=== PATIENT | male | born 1945 | race American Indian/Alaskan Native ===

== ENCOUNTER 2019-02-07 20:17 | Inpatient (IN) | payer MEDICARE ==
[~2019-02-07] VITALS: Ht 172.7 cm; Wt 103.4 kg
[2019-02-07] MEDS ORDERED: ALBU2.5V5 (20:37)
[2019-02-07 20:38] LABS: BASOPHILS ABSOLUTE AUTO 0.01 K/mm3 (0.00-0.23); BASOPHILS PERCENT AUTO 0 % (0-2); EOSINOPHILS PERCENT AUTO 0 % (0-6); Hemoglobin 17.3 g/dL (13.5-17.5); IMMATURE GRAN ABSOLUTE AUTO 0.08 K/mm3 (0.00-0.10); IMMATURE GRAN PERCENT AUTO 1 % (0-1); LYMPHOCYTES ABSOLUTE AUTO 0.85 K/mm3 (0.84-5.20); LYMPHOCYTES PERCENT AUTO 9 % (21-46); MONOCYTES ABSOLUTE AUTO 0.74 K/mm3 (0.16-1.47); MONOCYTES PERCENT AUTO 8 % (4-13); Mean Corpuscular HGB 32.8 pg (26.0-34.0); Mean Corpuscular HGB Conc 31.2 g/dL (31.5-36.5); Mean Corpuscular Volume 105 fL (80-100); Mean Platelet Volume 11.1 fL (9.1-12.4); NEUTROPHILS ABSOLUTE AUTO 7.54 K/mm3 (1.96-9.15); NEUTROPHILS PERCENT AUTO 82 % (41-73); NRBC ABSOLUTE 0.08 K/mm3 (0.00-0.02); NRBC Auto 0.9 /100 WBC (0.0-0.2); Platelet Count 165 K/mm3 (150-400); RDW Coefficient Variation 13.5 % (11.7-14.2); RDW Standard Deviation 53.1 fL (35.1-46.3); Red Blood Cell Count 5.27 M/mm3 (4.30-5.90); White Blood Cell Count 9.22 K/mm3 (4.00-11.30)
[2019-02-07 20:41] LABS: PCO2 Arterial 91.9 mmHg (35-45); PO2 Arterial 142 mmHg (80-100); pH Blood Arterial 7.16 (7.35-7.45)
[2019-02-07 20:45] LABS: Hematocrit 55.5 % (37.0-53.0)
[2019-02-07 20:53] LABS: Alanine Aminotransfer (ALT/SGP 77 U/L (12-78); Albumin, Blood 3.5 g/dL (3.4-5.0); Albumin/Globulin Ratio 0.8 (0.8-1.8); Alk Phos 60 U/L (50-136); Anion Gap 9 mmol/L (6-16); Aspartate Aminotrans (AST/SGOT 84 U/L (12-37); Bilirubin, Total 1.2 mg/dL (0.1-1.0); Blood Urea Nitrogen 81 mg/dL (8-24); Bun/Creatinine Ratio 64.8 (12.0-20.0); CO2, Blood 30 mmol/L (21-32); Calcium, Blood 8.5 mg/dL (8.5-10.1); Chloride, Blood 103 mmol/L (98-108); Creatinine, Blood 1.25 mg/dL (0.60-1.20); Globulin, Blood 4.6 g/dL (2.2-4.0); Glomerular Filtration Rate >60 (60-); Glucose, Blood 127 mg/dL (70-99); Potassium, Blood 5.6 mmol/L (3.5-5.5); Sodium, Blood 142 mmol/L (136-145); Total Protein, Blood 8.1 g/dL (6.4-8.2)
[2019-02-07] MEDS ORDERED: ALBU90OI INH (21:30)
[2019-02-07] MEDS ORDERED: FLUT1DIS5 INH (21:31)
[2019-02-07 22:37] LABS: PCO2 Arterial 78.6 mmHg (35-45); PO2 Arterial 69.1 mmHg (80-100); pH Blood Arterial 7.22 (7.35-7.45)
[2019-02-07 23:36] LABS: Anion Gap 3 mmol/L (6-16); Blood Urea Nitrogen 85 mg/dL (8-24); Bun/Creatinine Ratio 79.4 (12.0-20.0); CO2, Blood 31 mmol/L (21-32); Calcium, Blood 8.3 mg/dL (8.5-10.1); Chloride, Blood 106 mmol/L (98-108); Creatinine, Blood 1.07 mg/dL (0.60-1.20); Glomerular Filtration Rate >60 (60-); Glucose, Blood 116 mg/dL (70-99); Potassium, Blood 5.5 mmol/L (3.5-5.5); Sodium, Blood 140 mmol/L (136-145)
[2019-02-07 23:45] LABS: Creatine Kinase MB 5.3 ng/mL (0.0-3.6); Creatine Kinase MB Index 2.2 (0.0-4.0)
--- NOTE | 2019-02-07 23:45 | NUR ---
ADMIT PT ARRIVES VIA STRETCHER WITH RT ON BIPAP 14/8 FIO2 35% AND BUR 18. PT MUMBLES WORDS AND IS ATTEMPTING TO PULL OFF BIPAP. PT DOES NOD YES WHEN ASKED IF HE LIKES TO BE CALLED [facility]LE[facility] BUT WILL NOT ANSWER ANY FURTHER QUESTIONS AND IS ATTEMPTING TO GET OOB AND PULLING OFF BIPAP, O2 SATS DROP FROM 95% TO 88% QUICKLY. PLAN TO CALL DR RAI FOR ORDERS AND INITIATE ADMIT ORDERS.
--- NOTE | 2019-02-08 00:20 | NUR ---
DR RAI CALLED PT ONLY NODS HEAD TO SIMPLE QUESTIONS AND YELLS OUT OBSCENITIES, ATTEMPTING TO PULL BIPAP OFF AND GET OOB. CALL TO DR RAI BILMELIDA SOFT WRIST RESTRAINT ORDER AND PRECEDEX GTT OBTAINED.
[2019-02-08 00:51] LABS: U Amphetamine Screen Not Detected; U Barbituate Screen Not Detected; U Benzodiazapine Screen Not Detected; U Cannabinoids Screen Not Detected; U Cocaine Screen Not Detected; U Methadone Screen Not Detected; U Methamphetamine Screen Not Detected; U Opiates Screen Not Detected; U Phencyclidine Screen Not Detected
[2019-02-08 00:52] LABS: U Buprenorphine Screen Not Detected; U Oxycodone Screen Not Detected; U Propoxyphene Screen Not Detected
--- NOTE | 2019-02-08 03:24 | NUR ---
TRIAL OFF BIPAP PT IS RESTLESS, BIPAP OFF AND ORAL CARE COMPLETED. O2 SATS DROPPED TO 88% WHILE OFF BIPAP. WHEN ASKED ORIENTATION QUESTIONS, PT RESPONDS TO NAME BUT WILL NOT ANSWER QUESTIONS RELATED TO LOCATION OR DATE. BIPAP RESUMED AT 18/8 FIO2 35%.
--- NOTE | 2019-02-08 03:53 | NUR ---
UPDATE PT REMAINS RESTLESS DESPITE UPWARD TITRATION OF PRECEDEX. PT IS PULLING ON RESTRAINTS AND HAS BEEN ABLE TO MOVE HIS UPPER BODY OVER TO THE SIDE OF THE BED WHERE HE CAN REACH BIPAP AND PULL IT OFF IN ADDITION TO PULLING ON HIS CATHETER TO WHERE THERE IS NOW BLOOD AT THE MEATUS. BIPAP OFF AND O2 AT 2L/NC ON. PT NOW ABLE TO TELL THIS RN THAT HE IS IN THE HOSPITAL, DOES NOT KNOW DATE BUT KNOWS SIRI IS PRESIDENT. AFTER 15 MINUTES OFF BIPAP, PT YELLS "HELP" AND REPORTS INCREASED WOB/SOB. BIPAP RESUMED.
[2019-02-08 04:42] LABS: Source, Urine Catheter
[2019-02-08 04:49] LABS: Appearance, Urine Cloudy (Clear); Bilirubin, Urine Neg (Neg); Blood, Urine 5+ (Neg); Color, Urine Amber (P-Yellow); Glucose Qualitative, Urine Neg (Neg); Ketones, Urine Neg (Neg); Leukocyte Esterase, Urine 3+ (Neg); Nitrite, Urine Neg (Neg); Protein, Urine 2+ (Neg); Urobilinogen, Urine 2+ (Normal)
[2019-02-08 05:05] LABS: Bacteria Many /hpf; Hyaline Casts 0-2 /lpf (0-2); Squamous Epithelial Cells Few /hpf (Few); White Blood Cells, Urine 50-100 /hpf (0-5)
[2019-02-08 05:06] LABS: WBC Cast 0-2 /lpf (0)
[2019-02-08 05:26] LABS: Hematocrit 50.4 % (37.0-53.0); Hemoglobin 15.3 g/dL (13.5-17.5); Mean Corpuscular HGB 31.9 pg (26.0-34.0); Mean Corpuscular HGB Conc 30.4 g/dL (31.5-36.5); Mean Corpuscular Volume 105 fL (80-100); Mean Platelet Volume 10.7 fL (9.1-12.4); NRBC ABSOLUTE 0.06 K/mm3 (0.00-0.02); NRBC Auto 0.9 /100 WBC (0.0-0.2); Platelet Count 133 K/mm3 (150-400); RDW Coefficient Variation 13.6 % (11.7-14.2); RDW Standard Deviation 53.2 fL (35.1-46.3); White Blood Cell Count 6.52 K/mm3 (4.00-11.30)
[2019-02-08 05:50] LABS: Magnesium, Blood 3.4 mg/dL (1.6-2.4)
[2019-02-08 06:04] LABS: Anion Gap 7 mmol/L (6-16); Blood Urea Nitrogen 81 mg/dL (8-24); Bun/Creatinine Ratio 74.3 (12.0-20.0); CO2, Blood 27 mmol/L (21-32); Chloride, Blood 108 mmol/L (98-108); Creatinine, Blood 1.09 mg/dL (0.60-1.20); Glomerular Filtration Rate >60 (60-); Glucose, Blood 148 mg/dL (70-99); Sodium, Blood 142 mmol/L (136-145)
[2019-02-08 06:05] LABS: Potassium, Blood 6.2 mmol/L (3.5-5.5)
--- NOTE | 2019-02-08 06:16 | NUR ---
CALL TO DR CECELIA LYNNE UPDATED ON CRITICAL K OF 6.2. ONCE LABS REVIEWED, DR PLACED ORDER FOR 10 INSULIN IV AND 25GM D50.
--- NOTE | 2019-02-08 06:37 | NUR ---
SHIFT SUMMARY SEE PREVIOUS NOTES FOR SHIFT. PT REMAINS ON BIPAP 18/8 FIO2 35% AND PRECEDEX CURRENTLY AT 0.2 MCG/HR. AFTER UPDATING DR RAI OF AM LABS, ORDERS ENTERED FOR CALCIUM GLUCONATE AND D50 FOLLOWED BY 10 UNITS OF IV INSULIN AT 0730. CALCIUM GLUCONATE INFUSING AND D50 HAS BEEN ADMINISTERED. BP LOW BUT WITH ADEQUATE MAP AND UOP >500, ECG SHOWS SR/SB WITH DROPS DOWN TO 48/MIN BUT IS NOT SUSTAINED AND PRECEDEX HAS BEEN CONTINUOUSLY TITRATED DOWNWARD. O2 SATS MID 90'S.
[2019-02-08 07:56] LABS: Base Excess Venous 1.6 mmol/L; Bicarbonate Venous 23.8 mmol/L (24.0-30.0); PO2 Venous 80.7 mmHg (38-42); pH Blood Venous 7.23 (7.34-7.37)
[2019-02-08 09:17] LABS: Adenovirus Not Detected (NOT DETECT); Bordetella pertussis Not Detected (NOT DETECT); Chlamydophila pneumoniae Not Detected (NOT DETECT); Coronavirus 229E Not Detected (NOT DETECT); Coronavirus HKU1 Not Detected (NOT DETECT); Coronavirus NL63 Not Detected (NOT DETECT); Coronavirus OC43 Not Detected (NOT DETECT); Human Metapneumovirus Not Detected (NOT DETECT); Human Rhinovirus/Enterovirus Not Detected (NOT DETECT); Influenza A Detected (NOT DETECT); Influenza A/2009-H1 Not Detected (NOT DETECT); Influenza A/H1 Not Detected (NOT DETECT); Influenza A/H3 Detected (NOT DETECT); Influenza B Not Detected (NOT DETECT); Mycoplasma pneumoniae Not Detected (NOT DETECT); Parainfluenza Virus 1 Not Detected (NOT DETECT); Parainfluenza Virus 2 Not Detected (NOT DETECT); Parainfluenza Virus 3 Not Detected (NOT DETECT); Parainfluenza Virus 4 Not Detected (NOT DETECT); Respiratory Syncytial Virus Not Detected (NOT DETECT)
--- NOTE | 2019-02-08 10:35 | NUR ---
PT HAS BEEN COOPERATIVE, NOT PULLING ON HIS BIPAP OR TRYING TO GET OUT OF BED WHILE HE IS AWAKE SO RESTRAINTS DISCONTINUED. EXPLAINED TO HIM AND HIS DAUGHTER BEHAVIORS AND REASONS THAT WOULD NECESSITATE PT GOING BACK IN RESTRAINTS. PT CAME BACK FLU + SO PLACED ON ISOLATION PRECAUTIONS. DR. PERDUE INFORMED OF THIS WELL THAT PT'S PAULINE IS PRESENT AND HE CAME AND SPOKE WITH HER IN THE ROOM. PT IS CURRENTLY OFF OF BIPAP ON 2L/NC AND APPEARS TO BE BREATHING WITH LITTLE EFFORT. SPOKE WITH DR. PERDUE AND RECEIVED OK TO FEED PT IF HE CONTINUES TO BREATHE OK OFF OF BIPAP.
--- NOTE | 2019-02-08 12:10 | NUR ---
REASSESSMENT: PT HAS BEEN MORE AWAKE THE LATTER HALF OF THE MORNING, WATCHING TV AND INTERACTING WITH HIS FAMILY WHEN THEY WERE IN THE ROOM. LUNGS ARE STILL DIM. HE HAS BEEN OFF OF THE BIPAP FOR ABOUT AN HOUR AND A HALF, JUST ON 2L/NC AND IS STILL BREATHING EASILY. PT IS A LITTLE RESTLESS AND ADMITS THAT HE DOESN'T LIKE BEING IN THE HOSPITAL, SUPPORT GIVEN. HE REFUSED ANY LUNCH. DENIES NAUSEA, JUST NO APPETITE. HE IS DRINKING WATER. HE GOT A BATH THIS MORNING. SKIN IS VERY DRY SO MOISTURIZER APPLIED LIBERALLY. CONTIUING TO MONITOR.
[2019-02-08 12:39] LABS: Albumin, Blood 3.2 g/dL (3.4-5.0); Anion Gap 7 mmol/L (6-16); Blood Urea Nitrogen 78 mg/dL (8-24); Bun/Creatinine Ratio 74.3 (12.0-20.0); CO2, Blood 26 mmol/L (21-32); Calcium, Blood 8.1 mg/dL (8.5-10.1); Chloride, Blood 110 mmol/L (98-108); Creatinine, Blood 1.05 mg/dL (0.60-1.20); Glomerular Filtration Rate >60 (60-); Glucose, Blood 129 mg/dL (70-99); Potassium, Blood 5.5 mmol/L (3.5-5.5); Sodium, Blood 143 mmol/L (136-145)
--- NOTE | 2019-02-08 15:27 | NUR ---
PT WAS WORE THE BIPAP MASK FOR ABOUT AN HOUR BEFORE TAKING IT OFF AND TELLING THIS RN THAT HE DOESN'T WANT TO WEAR IT ANYMORE. PT CONFIRMED THAT HE UNDERSTOOD NOT WEARING THE MASK COULD LEAD TO AND HE STILL DIDN'T WANT IT. PT WAS ABLE TO CORRECTLY STATE WHERE HE WAS AND WHO THE PRESIDENT IS. WHEN QUESTIONED PT FURTHER HE STATES THAT HE WOULDN'T WANT TO BE INTUBATED OR HAVE CPR. BROUGHT PT'S DAUGHTERS INTO THE ROOM AND DISCUSSED WITH THEM WHAT PT IS SAYING EMPHASIZING THAT I WAS BRINGING THEM IN SO THEY COULD HEAR WHAT HE HAS TO SAY AND EMPHASIZING THAT THIS IS THE PT'S DECISION SINCE HE IS COHERENT. PT'S CONVERSATION WITH HIS DAUGHTERS LARGELY CONSISTED OF THEM BEGGING HIM TO WEAR THE MASK AND AGREE TO CONTINUE BEING A FULL CODE. PT CLEARLY STATED TO THEM THAT IT IS NOT WHAT HE WANTS, BUT ULTIMATELY TOLD ME HE WOULD CONTINUE TO BE FULL CODE. HE ALSO SAID HE WOULD WEAR THE MASK BUT ASKED FOR MEDICATION TO HELP HIM RELAX AGAIN SO PRECEDEX GTT RESTARTED AND WILL PLACE BACK ON BIPAP. PALLIATIVE CONSULT PLACED TO HELP FACILITATE CONVERSATIONS ABOUT CODE STATUS AND GOALS OF CARE FOR TREATMENT.
--- NOTE | 2019-02-08 16:21 | NUR ---
SHIFT SUMMARY: PT HAS CONTINUED TO BE ALERT THROUGHOUT THE REST OF THE DAY. HE APPEARS TO BE SLIGHTLY LABORED IN HIS BREATHING BUT HE DENIES FEELING SHORT OF BREATH AND HIS PAULINE SAYS THAT HE ALWAYS LOOKS A LITTLE DYSPNEIC. LUNGS HAVE A FEW QUIET WHEEZES, BUT ARE OTHERWISE DIM. HE HAS CONTINUED TO BE SR, BP STABLE. DUNBAR STILL HAS A LITTLE BIT OF BLOOD IN IT MAKING THE URINE TEA COLORED NOW, NO CLOTS SEEN. PT IS TAKING PO FLUIDS BUT HAS NOT WANTED ANY SOLID FOODS SO FAR. FAMILY HAS SPENT MOST OF THE DAY AT THE BEDSIDE. LOTS OF DISCUSSION ABOUT CODE STATUS WITH THEM AND PALLIATIVE CONSULT HAS BEEN PLACED. PT WAS STILL NOT WANTING THE BIPAP EVEN WITH SOME PRECEDEX ON SO PRECEDEX OFF AGAIN AND WILL READDRESS BIPAP LATER WITH PT AND FAMILY IF HE STOPS MAINTAINING SPO2 ABOVE 88 OR IF BREATHING BECOMES MORE LABORED. CONTIUING TO MONITOR FOR NOW.
--- NOTE | 2019-02-08 19:38 | NUR ---
[place] of Care: Patient alert and oriented to self, place, time, reason for admission. Sitting upright in bed watching tv, calm and cooperative with staff. Denies pain, discomfort, SOB, or dyspnea. VSS, O2 88-92% on 4L/NC. Peripheral IV's x2 patent and intact, NS infusing at 75ml/hr. Keyes cath patent and intact, draining dark yellow, clear urine. Call light and fluids within reach. Will continue to monitor for pain, comfort, safety.
[2019-02-09 03:31] LABS: BASOPHILS ABSOLUTE AUTO 0.01 K/mm3 (0.00-0.23); BASOPHILS PERCENT AUTO 0 % (0-2); EOSINOPHILS PERCENT AUTO 0 % (0-6); Hematocrit 49.9 % (37.0-53.0); Hemoglobin 15.1 g/dL (13.5-17.5); IMMATURE GRAN ABSOLUTE AUTO 0.22 K/mm3 (0.00-0.10); IMMATURE GRAN PERCENT AUTO 2 % (0-1); LYMPHOCYTES PERCENT AUTO 7 % (21-46); MONOCYTES ABSOLUTE AUTO 0.48 K/mm3 (0.16-1.47); MONOCYTES PERCENT AUTO 4 % (4-13); Mean Corpuscular HGB 32.9 pg (26.0-34.0); Mean Corpuscular HGB Conc 30.3 g/dL (31.5-36.5); Mean Platelet Volume 11.1 fL (9.1-12.4); NEUTROPHILS ABSOLUTE AUTO 10.26 K/mm3 (1.96-9.15); NEUTROPHILS PERCENT AUTO 87 % (41-73); NRBC Auto 1.7 /100 WBC (0.0-0.2); Platelet Count 131 K/mm3 (150-400); RDW Coefficient Variation 13.6 % (11.7-14.2); RDW Standard Deviation 55.7 fL (35.1-46.3); Red Blood Cell Count 4.59 M/mm3 (4.30-5.90); White Blood Cell Count 11.77 K/mm3 (4.00-11.30)
[2019-02-09 03:34] LABS: Mean Corpuscular Volume 109 fL (80-100)
[2019-02-09 03:59] LABS: Albumin, Blood 3.1 g/dL (3.4-5.0); Anion Gap 4 mmol/L (6-16); Blood Urea Nitrogen 61 mg/dL (8-24); Bun/Creatinine Ratio 72.5 (12.0-20.0); CO2, Blood 31 mmol/L (21-32); Chloride, Blood 110 mmol/L (98-108); Creatinine, Blood 0.84 mg/dL (0.60-1.20); Glomerular Filtration Rate >60 (60-); Glucose, Blood 110 mg/dL (70-99); Phosphorus, Blood 3.7 mg/dL (2.5-4.9); Potassium, Blood 6.1 mmol/L (3.5-5.5); Sodium, Blood 145 mmol/L (136-145)
--- NOTE | 2019-02-09 07:28 | NUR ---
Shift Summary: Patient slept on/off throughout shift. Continues to deny pain, discomfort, SOB, or dyspnea. Placed on BiPAP mask early in shift r/t O2% in low 80's, also sleeping well at that time. Did not tolerate BiPAP mask for longer than 10min. Placed back on NC, O2-5-6L, effective to maintain O2% of 87-93% throughout remainder of shift. Peripheral IV's remain patent and intact, infusing NS at 75ml/hr without difficulty. Also tolerated PO water without difficulty. Keyes cath remains patent and intact, draining dark yellow, clear urine. Report given to day shift YUMI Jones.
[2019-02-09 09:22] LABS: Alanine Aminotransfer (ALT/SGP 145 U/L (12-78); Albumin, Blood 3.1 g/dL (3.4-5.0); Albumin/Globulin Ratio 0.9 (0.8-1.8); Alk Phos 46 U/L (50-136); Anion Gap 3 mmol/L (6-16); Aspartate Aminotrans (AST/SGOT 90 U/L (12-37); Bilirubin, Total 0.9 mg/dL (0.1-1.0); Blood Urea Nitrogen 55 mg/dL (8-24); CO2, Blood 31 mmol/L (21-32); Calcium, Blood 8.2 mg/dL (8.5-10.1); Chloride, Blood 111 mmol/L (98-108); Creatinine, Blood 0.79 mg/dL (0.60-1.20); Globulin, Blood 3.5 g/dL (2.2-4.0); Glomerular Filtration Rate >60 (60-); Glucose, Blood 115 mg/dL (70-99); Potassium, Blood 5.9 mmol/L (3.5-5.5); Sodium, Blood 145 mmol/L (136-145); Total Protein, Blood 6.6 g/dL (6.4-8.2)
--- NOTE | 2019-02-09 13:58 | NUR ---
PT AWAKE THIS AM AT 0730 BUT LETHARGIC, SLOW TO ANSWER QUESTIONS, RESP 20-30'S, SATS 88-92% ON 6L VIA NC. DR PERDUE IN TO SEE PT EARLY AROUND 0800. PT MORE ALERT WHEN SPEAKING W DR PERDUE. PT CONTINUED TO IMPROVE COGNITIVELY FAMILY CAME IN TO VISIT. PT ANSWERS MOST QUESTIONS W ONE WORD ANSWERS. DENIES C/O PAIN BUT APPEARS DYSPNEIC WITH EXERTION. PT GIVEN BED BATH AND TRANSFERED TO CHAIR USING LIFT AT NOON. PT TOLERATED WELL. ALBUMIN IV GIVEN PER DR CESAR ORDERS. NS AT 75CC/HR. PT LUNGS WITH EXP WHEEZES THAT IMPROVE AFTER TREATMENTS AND DIMINISHED T/O. AFEBRILE. NORVASC STARTED FOR HTN. PT NOW MED FLOOR STATUS W TELE.
--- NOTE | 2019-02-09 15:29 | NUR ---
SBA WITH WALKER AND GAIT BELT TO BEDSIDE COMMODE AND BACK TO CHAIR. PT ABLE TO STAND W/O ASSIST. PT/OT ORDERED. SATS DROPPED SLIGHTLY INTO HIGH EIGHTIES, PT RECOVERED WITHIN MIN OF RESTING. OVERALL PT TOLERATED ACTIVITY WELL. LARGE SOFT BM.
--- NOTE | 2019-02-09 17:57 | NUR ---
REPORT GIVEN TOMEDICAL FLOOR RN. PT TO MEDICAL FLOOR AT 1800
[2019-02-09 18:03] LABS: Albumin, Blood 3.6 g/dL (3.4-5.0); Anion Gap 1 mmol/L (6-16); Blood Urea Nitrogen 52 mg/dL (8-24); Bun/Creatinine Ratio 65.7 (12.0-20.0); CO2, Blood 35 mmol/L (21-32); Calcium, Blood 8.4 mg/dL (8.5-10.1); Chloride, Blood 107 mmol/L (98-108); Creatinine, Blood 0.79 mg/dL (0.60-1.20); Glomerular Filtration Rate >60 (60-); Glucose, Blood 131 mg/dL (70-99); Phosphorus, Blood 2.7 mg/dL (2.5-4.9); Potassium, Blood 5.4 mmol/L (3.5-5.5); Sodium, Blood 143 mmol/L (136-145)
--- NOTE | 2019-02-09 23:10 | NUR ---
Pt was found in bathroom after bed alarm went off; pts will catheter was disconnected from drainage bag (this nurse reattached new drainage bag); IV catheter was also found on floor--site clotted off. Pt cleasned up and assisted back to bed with O2 reapplied (o2 sat was 80% prior reapplication) and now is 94%). Bed alarm re set
--- NOTE | 2019-02-10 02:14 | NUR ---
PT RESTING COMFORTABLY IN BED AFTER SITTING IN BEDSIDE CHAIR (ALARM PLACED ON CHAIR FOR SAFETY).
--- NOTE | 2019-02-10 03:44 | NUR ---
73 Y/O MALE AT BEGINNING OF SHIFT MOVED FROM CHAIR TO BED NUMEROUS TIMES TO INCLUDE GETTING UP AND AMBULATING TO BATHROOM X1 AND PULLING OUT IV AND DISCONNECTING DUNBAR BAG FROM CATHETER. PT FINALLY ABLE TO RELAX AROUND 0100 AND SLEEP REST OF MORNING HOURS (BED ALARM ON). PT ALERT AND ORIENTED X 2, ABLE TO FOLLOW SIMPLE VERBAL COMMANDS. DUNBAR DRAINING LIGHT PINK FLUID WITH STATLOCK INTACT LEFT INNER THIGH. PT WEARING O2 AT 6L/M PER NASAL CANNULA. PT DENIES PAIN OR NAUSEA. PTS BED IN LOW POSITION, CALL LIGHT AT SIDE.
[2019-02-10 04:58] LABS: BASOPHILS ABSOLUTE AUTO 0.04 K/mm3 (0.00-0.23); BASOPHILS PERCENT AUTO 0 % (0-2); EOSINOPHILS PERCENT AUTO 0 % (0-6); Hemoglobin 15.3 g/dL (13.5-17.5); IMMATURE GRAN ABSOLUTE AUTO 0.25 K/mm3 (0.00-0.10); IMMATURE GRAN PERCENT AUTO 2 % (0-1); LYMPHOCYTES ABSOLUTE AUTO 0.77 K/mm3 (0.84-5.20); LYMPHOCYTES PERCENT AUTO 7 % (21-46); MONOCYTES ABSOLUTE AUTO 0.48 K/mm3 (0.16-1.47); MONOCYTES PERCENT AUTO 4 % (4-13); Mean Corpuscular HGB 32.7 pg (26.0-34.0); Mean Corpuscular Volume 109 fL (80-100); Mean Platelet Volume 10.8 fL (9.1-12.4); NEUTROPHILS ABSOLUTE AUTO 10.15 K/mm3 (1.96-9.15); NEUTROPHILS PERCENT AUTO 87 % (41-73); NRBC ABSOLUTE 0.06 K/mm3 (0.00-0.02); NRBC Auto 0.5 /100 WBC (0.0-0.2); Platelet Count 155 K/mm3 (150-400); RDW Coefficient Variation 13.5 % (11.7-14.2); Red Blood Cell Count 4.68 M/mm3 (4.30-5.90); White Blood Cell Count 11.69 K/mm3 (4.00-11.30)
[2019-02-10 05:15] LABS: Albumin, Blood 3.5 g/dL (3.4-5.0); Anion Gap 2 mmol/L (6-16); Blood Urea Nitrogen 47 mg/dL (8-24); Bun/Creatinine Ratio 61.7 (12.0-20.0); CO2, Blood 35 mmol/L (21-32); Calcium, Blood 8.5 mg/dL (8.5-10.1); Chloride, Blood 109 mmol/L (98-108); Creatinine, Blood 0.76 mg/dL (0.60-1.20); Glomerular Filtration Rate >60 (60-); Glucose, Blood 115 mg/dL (70-99); Potassium, Blood 5.5 mmol/L (3.5-5.5); Sodium, Blood 146 mmol/L (136-145)
--- NOTE | 2019-02-10 09:45 | NUR ---
DUNBAR DC'ED DR. GIVENS CALLED & ORDERED FOR THE PTS DUNBAR TO BE DC'ED. STATED TO BLADDER SCAN IN 4 HOURS IF PT DOES NOT VOID. WILL CONTINUE TO MONITOR.
--- NOTE | 2019-02-10 12:39 | NUR ---
PT INCREASED TO 6L PT INCREASED BACK TO 6L VIA NC. PT WAS SATING AT 82 ON 4L. PT NOW AT 92 ON 6L. RT, APOLINAR MENDIOLA. WILL CONTINUE TO MONITOR
--- NOTE | 2019-02-10 14:16 | NUR ---
DR. GIVENS CALLED DR. GIVENS CALLED SO THAT PT DAUGHTER, RACHANA CAN SPEAK WITH HIM.
--- NOTE | 2019-02-10 16:59 | NUR ---
SHIFT SUMMARY FAMILY STATES THAT PT HAS IMPROVED WITH MENTATION & PHYSICALLY, BUT IS NOT BACK TO BASELINE. PT IN STABLE CONDITION WITH VSS. PT CONFUSED AT TIMES & ONLY ANSWERS QUESTIONS WITH ONE WORD ANSWERS OR SMALL STATMENTS. BETTINA SYED'ED THIS AM. PT VOIDING. NO OTHER CHANGES IN ASSESSMENT AT THIS TIME. FAMILY AT BEDSIDE. CALL LIGHT IN REACH. BED/CHAIR ALARM IN USE. WILL CONTINUE TO MONITOR UNTIL TURNOVER IS COMPLETE.
[2019-02-11 05:14] LABS: BASOPHILS ABSOLUTE AUTO 0.03 K/mm3 (0.00-0.23); BASOPHILS PERCENT AUTO 0 % (0-2); EOSINOPHILS PERCENT AUTO 0 % (0-6); Hematocrit 50.5 % (37.0-53.0); Hemoglobin 15.3 g/dL (13.5-17.5); IMMATURE GRAN ABSOLUTE AUTO 0.17 K/mm3 (0.00-0.10); IMMATURE GRAN PERCENT AUTO 2 % (0-1); LYMPHOCYTES ABSOLUTE AUTO 0.65 K/mm3 (0.84-5.20); LYMPHOCYTES PERCENT AUTO 8 % (21-46); MONOCYTES ABSOLUTE AUTO 0.41 K/mm3 (0.16-1.47); MONOCYTES PERCENT AUTO 5 % (4-13); Mean Corpuscular HGB Conc 30.3 g/dL (31.5-36.5); Mean Corpuscular Volume 109 fL (80-100); Mean Platelet Volume 10.8 fL (9.1-12.4); NEUTROPHILS PERCENT AUTO 84 % (41-73); Platelet Count 148 K/mm3 (150-400); RDW Coefficient Variation 13.3 % (11.7-14.2); RDW Standard Deviation 54.7 fL (35.1-46.3); Red Blood Cell Count 4.64 M/mm3 (4.30-5.90); White Blood Cell Count 7.86 K/mm3 (4.00-11.30)
[2019-02-11 05:26] LABS: Anion Gap 1 mmol/L (6-16); Blood Urea Nitrogen 37 mg/dL (8-24); Bun/Creatinine Ratio 56.2 (12.0-20.0); CO2, Blood 36 mmol/L (21-32); Calcium, Blood 8.2 mg/dL (8.5-10.1); Chloride, Blood 107 mmol/L (98-108); Creatinine, Blood 0.66 mg/dL (0.60-1.20); Glomerular Filtration Rate >60 (60-); Glucose, Blood 104 mg/dL (70-99); Potassium, Blood 5.4 mmol/L (3.5-5.5); Sodium, Blood 144 mmol/L (136-145)
--- NOTE | 2019-02-11 06:55 | NUR ---
walking rounds completed with day staff, pt remains at orintation baseline, saline locked, 6L via nc, impulsive, sob, eating food brought in by family
--- NOTE | 2019-02-11 16:45 | NUR ---
SHIFT SUMMARY NO CHANGES IN ASSESSMENT AT THIS TIME. VSS. PT WORKED WITH PHYSICAL THERAPY & WALKED TO BATHROOM. PT SATING IN THE 90S ON 6L. PT PLANNED TO DC SUNDAY. WILL CONTINUE TO MONITOR UNTIL TURNOVER IS COMPLETE.
--- NOTE | 2019-02-11 17:45 | NUR ---
Initial Visit: Consult to discuss code status Pt is alert, oriented, denies pain. Reviewed POLST. He does not wish to fill this out, however, reviewed advance directives and he is interested in this. Reviewed purpose of advance directive. Provided booklet, What You Need to Know About Life Support and an advance directive booklet. He reports that he will discuss with family and fill it out at home. Will remain available.
--- NOTE | 2019-02-12 08:04 | NUR ---
Rn summary: Patient was transferred to room 346 via W/C at 2030 due to pt not staying in bed, trying to go home. Pt is oriented to self and family. He knows his birthdate. Patient will not leave O2 on. Pt standing at bedside, states he is going home now and will go right over the top of me if he has to. Patient would not listen to staff for why he needs to stay. Charge nurse to room, pt placed in wrist restraint and vest lucille with the help of security. Patient was trialed off wrist restaints but he would not leave O2 on and would try to get out of bed. Both daughters were notified of pt being in restraints and confusion. Pt has been cooperative but immediately wants to leave if unrestrained. Pt did stand with assist and used urinal at bedside with 2 assist. He bec omes easily SOB. He is on 6 liters O2. Breath sounds diminished and does have audible wheezes at times. Call light in reach. Report given to day shift and update to granddaughter this am.
--- NOTE | 2019-02-12 13:56 | NUR ---
PT PULLED HIS IV. SITE CARE GIVEN. REPORTED TO DR. GIVENS
--- NOTE | 2019-02-12 18:15 | NUR ---
SHIFT SUMMARY CONFUSED BUT OX3 SLOW TO RESPOND, FORGETFUL, 1-2 PERSON ASSIST TO TRANSFER. LIVES AT HOME WITH FAMILY. NO IV ACCESS. NEEDS TO STAND UP TO BE ABLE TO URINATE, USES URINAL WELL. MULTIPLE FAMILY IN ROOM THROUGHOUT DAY. EATING AND DRINKING WELL. PULLED IV OUT TODAY.
--- NOTE | 2019-02-13 04:19 | NUR ---
73 Y/O MALE RESTED COMFORTABLY ALL EVENING. PT TOOK MELATONIN 6MG LAST PM FOR SLEEP. PT SCHEDULED TENTATIVELY FOR DISCHARGE TODAY TO HIS DAUGHTER'S HOME IN [facility]. PT CONTINUES TO HAVE SOB WITH VERY SLIGHT ACTIVITY WHILE WEARING O2 AT 4L/M PER N/C. PT DENIES PAIN/NAUSEA. PTS BED IN LOW POSITION WITH CALL LIGHT AT BEDSIDE.
[2019-02-13] MEDS ORDERED: AMLO5 PO (13:16)
[2019-02-13] MEDS ORDERED: ALBU3IS INH (13:17)
[2019-02-13] MEDS ORDERED: LEVO750 PO (13:18)
[2019-02-13] MEDS ORDERED: NICO21TP TOP (13:18)
[2019-02-13] MEDS ORDERED: DELTASONE20 MG PO (13:20)
--- NOTE | 2019-02-13 15:03 | NUR ---
PATIENT D/C'D TO HOME WITH FAMILY. RX MEDICATIONS FAXED TO [facility]. D/C INSTRUCTIONS AND EDUCATION DISCUSSED WITH PATIENT AND FAMILY AND COPY PROVIDED. PATIENT DENIES ANY FURTHER QUESTIONS OR CONCERNS. ALVINA TO DELIVER O2 TO PATIENTS HOME, DR. GIVENS TO COME FILL OUT PAPERWORK FOR NEBULIZER TO GET THAT SENT OFF.
== END 2019-02-13 14:55 | disposition home or self-care (01) | DRG 193 ==
LOC: ER 20:17 → ICUW 21:46 → ICUE 21:46 → ICUW 02-08 11:52 → MEDS 02-09 17:58 → ENPENDDIS 02-13 12:59 → MEDS 02-13 14:55
PROVIDERS: Emergency Medicine; Hospitalist; Internal Medicine; Internal Medicine Critical Care Medicine; Nurse Practitioner Acute Care; ADMIT Internal Medicine
DX: J09.X2 Influenza due to identified novel influenza A virus with other respiratory manifestations (principal); J96.02 Acute respiratory failure with hypercapnia; G92 Toxic encephalopathy; J96.01 Acute respiratory failure with hypoxia; J44.1 Chronic obstructive pulmonary disease with (acute) exacerbation; N17.9 Acute kidney failure, unspecified; E87.0 Hyperosmolality and hypernatremia; N39.0 Urinary tract infection, site not specified; Z51.5 Encounter for palliative care; E87.5 Hyperkalemia; D75.89 Other specified diseases of blood and blood-forming organs; F17.210 Nicotine dependence, cigarettes, uncomplicated
CPT/HCPCS: 36415; 36600; 51702; 71045; 80048; 80053; 80069; 81001; 82550; 82553; 82607; 82746; 82803; 82947; 83036; 83735; 83880; 84132; 84145; 84484; 85025; 85027; 85379; 87077; 87086; 87186; 87486; 87581; 87633; 87798; 93005; 93010; 94640; 94644; 94660; 94760; 94761; 96361; 96365; 96366; 96375; 97110; 97116; 97162; 97167; 97530; 99285-25; G0480; J0456; J0610; J1650; J1815; J1940; J1956; J2920; J2930; J7030; J7050; P9046

== ENCOUNTER 2021-08-19 17:12 | Inpatient (IN) | payer MEDICARE, OTHER ==
[~2021-08-19] VITALS: Ht 172.7 cm; Wt 101.4 kg
[~2021-08-19 17:12] MED LIST: ALBU2.5V5; ALBU3IS INH; ALBU90OI INH; AMLO5 PO; DELTASONE20 MG PO; FLUT1DIS5 INH; LEVO750 PO; NICO21TP TOP
[2021-08-19 18:00] LABS: BASOPHILS ABSOLUTE AUTO 0.02 K/mm3 (0.00-0.23); BASOPHILS PERCENT AUTO 0 % (0-2); EOSINOPHILS PERCENT AUTO 0 % (0-6); Hematocrit 41.6 % (37.0-53.0); Hemoglobin 13.2 g/dL (13.5-17.5); IMMATURE GRAN ABSOLUTE AUTO 0.12 K/mm3 (0.00-0.10); IMMATURE GRAN PERCENT AUTO 1 % (0-1); LYMPHOCYTES ABSOLUTE AUTO 1.15 K/mm3 (0.84-5.20); LYMPHOCYTES PERCENT AUTO 10 % (21-46); MONOCYTES ABSOLUTE AUTO 0.49 K/mm3 (0.16-1.47); MONOCYTES PERCENT AUTO 4 % (4-13); Mean Corpuscular HGB 31.2 pg (26.0-34.0); Mean Corpuscular HGB Conc 31.7 g/dL (31.5-36.5); Mean Corpuscular Volume 98 fL (80-100); Mean Platelet Volume 12.4 fL (9.1-12.4); NEUTROPHILS ABSOLUTE AUTO 9.44 K/mm3 (1.96-9.15); NEUTROPHILS PERCENT AUTO 84 % (41-73); NRBC ABSOLUTE 0.04 K/mm3 (0.00-0.02); NRBC Auto 0.4 /100 WBC (0.0-0.2); Platelet Count 209 K/mm3 (150-400); RDW Coefficient Variation 12.5 % (11.7-14.2); RDW Standard Deviation 44.6 fL (35.1-46.3); Red Blood Cell Count 4.23 M/mm3 (4.30-5.90); White Blood Cell Count 11.22 K/mm3 (4.00-11.30)
[2021-08-19 18:06] LABS: Base Excess Venous 19.7 mmol/L; Bicarbonate Venous 40.2 mmol/L (24.0-30.0); PCO2 Venous 68.2 mmHg (38-42); PO2 Venous 129 mmHg (38-42); pH Blood Venous 7.42 (7.34-7.37)
[2021-08-19 18:15] LABS: Source, Urine Catheter
[2021-08-19 18:21] LABS: Alanine Aminotransfer (ALT/SGP 34 U/L (12-78); Albumin, Blood 3.2 g/dL (3.4-5.0); Albumin/Globulin Ratio 0.7 (0.8-1.8); Alk Phos 63 U/L (50-136); Anion Gap 3 mmol/L (6-16); Aspartate Aminotrans (AST/SGOT 59 U/L (12-37); Bilirubin, Direct 0.3 mg/dL (0.0-0.3); Bilirubin, Indirect 0.6 mg/dL (0.1-0.7); Bilirubin, Total 0.9 mg/dL (0.1-1.0); Blood Urea Nitrogen 51 mg/dL (8-24); Bun/Creatinine Ratio 56.7 (12.0-20.0); CO2, Blood 41 mmol/L (21-32); Calcium, Blood 8.8 mg/dL (8.5-10.1); Chloride, Blood 92 mmol/L (98-108); Globulin, Blood 4.6 g/dL (2.2-4.0); Glomerular Filtration Rate >60 (60-); Glucose, Blood 114 mg/dL (70-99); Magnesium, Blood 2.8 mg/dL (1.6-2.4); Potassium, Blood 4.3 mmol/L (3.5-5.5); Sodium, Blood 136 mmol/L (136-145); Total Protein, Blood 7.8 g/dL (6.4-8.2); Troponin I <0.015 ng/mL (0.000-0.040)
[2021-08-19 18:31] LABS: Appearance, Urine Clear (Clear); Bilirubin, Urine Neg (Neg); Blood, Urine 3+ (Neg); Color, Urine Amber (P-Yellow); Glucose Qualitative, Urine Neg (Neg); Ketones, Urine 3+ (Neg); Leukocyte Esterase, Urine 1+ (Neg); Nitrite, Urine Neg (Neg); Protein, Urine 2+ (Neg); Specific Gravity, Urine 1.015 (1.003-1.022); Urobilinogen, Urine 1+ (Normal)
[2021-08-19 18:39] LABS: Bacteria Rare /hpf; Hyaline Casts 0-2 /lpf (0-2); Red Blood Cells, Urine 0-2 /hpf (0-2); Squamous Epithelial Cells Few /hpf (Few); White Blood Cells, Urine 0-2 /hpf (0-5)
[2021-08-19 18:40] LABS: Mucus Mod (0-Heavy)
[2021-08-19 18:46] LABS: SARS-Cov-2 (COVID-19) PCR, MMC NEGATIVE (NEGATIVE)
--- NOTE | 2021-08-19 22:19 | NUR ---
UPDATE GIVEN TO HIS DAUGHTER JHON AND SHE WAS ABLE TO TALK TO HER FATHER.
[2021-08-19 23:35] LABS: U Amphetamine Screen Not Detected; U Barbituate Screen Not Detected; U Benzodiazapine Screen Not Detected; U Buprenorphine Screen Not Detected; U Cannabinoids Screen Not Detected; U Cocaine Screen Not Detected; U Methadone Screen Not Detected; U Methamphetamine Screen Not Detected; U Opiates Screen Not Detected; U Oxycodone Screen Not Detected; U Phencyclidine Screen Not Detected; U Propoxyphene Screen Not Detected
[2021-08-20 03:41] LABS: BASOPHILS ABSOLUTE AUTO 0.01 K/mm3 (0.00-0.23); BASOPHILS PERCENT AUTO 0 % (0-2); EOSINOPHILS ABSOLUTE AUTO 0.01 K/mm3 (0.00-0.68); EOSINOPHILS PERCENT AUTO 0 % (0-6); Hematocrit 40.2 % (37.0-53.0); Hemoglobin 12.7 g/dL (13.5-17.5); IMMATURE GRAN ABSOLUTE AUTO 0.11 K/mm3 (0.00-0.10); IMMATURE GRAN PERCENT AUTO 1 % (0-1); LYMPHOCYTES ABSOLUTE AUTO 0.67 K/mm3 (0.84-5.20); LYMPHOCYTES PERCENT AUTO 6 % (21-46); MONOCYTES ABSOLUTE AUTO 0.11 K/mm3 (0.16-1.47); MONOCYTES PERCENT AUTO 1 % (4-13); Mean Corpuscular HGB 31.4 pg (26.0-34.0); Mean Corpuscular HGB Conc 31.6 g/dL (31.5-36.5); Mean Corpuscular Volume 100 fL (80-100); Mean Platelet Volume 11.9 fL (9.1-12.4); NEUTROPHILS ABSOLUTE AUTO 9.49 K/mm3 (1.96-9.15); NEUTROPHILS PERCENT AUTO 91 % (41-73); NRBC ABSOLUTE 0.04 K/mm3 (0.00-0.02); NRBC Auto 0.4 /100 WBC (0.0-0.2); Platelet Count 188 K/mm3 (150-400); RDW Coefficient Variation 12.3 % (11.7-14.2); RDW Standard Deviation 44.6 fL (35.1-46.3); Red Blood Cell Count 4.04 M/mm3 (4.30-5.90)
[2021-08-20 04:09] LABS: Alanine Aminotransfer (ALT/SGP 29 U/L (12-78); Albumin, Blood 2.9 g/dL (3.4-5.0); Albumin/Globulin Ratio 0.6 (0.8-1.8); Alk Phos 58 U/L (50-136); Anion Gap 1 mmol/L (6-16); Aspartate Aminotrans (AST/SGOT 55 U/L (12-37); Bilirubin, Total 0.7 mg/dL (0.1-1.0); Blood Urea Nitrogen 42 mg/dL (8-24); Bun/Creatinine Ratio 44.5 (12.0-20.0); CO2, Blood 40 mmol/L (21-32); Calcium, Blood 8.4 mg/dL (8.5-10.1); Chloride, Blood 95 mmol/L (98-108); Creatinine, Blood 0.94 mg/dL (0.60-1.20); Globulin, Blood 4.5 g/dL (2.2-4.0); Glomerular Filtration Rate >60 (60-); Glucose, Blood 139 mg/dL (70-99); Potassium, Blood 4.9 mmol/L (3.5-5.5); Sodium, Blood 136 mmol/L (136-145); Total Protein, Blood 7.4 g/dL (6.4-8.2)
--- NOTE | 2021-08-20 06:26 | NUR ---
[facility] SUMMARY PATIENT IS RESTING COMFORTABLY IN BED. BED IS IN LOW POSITION. BED EXIT ALARM IS ON. PATIENT WAS TRYING TO GET OUT BED. PATIENT IS CURRENTLY ON HIGH FLOW AT 4L SATURATING >95%. HE WAS ABLE TO BE WEANED DOWN. HE SEEMS TO BE DOING SO MUCH BETTER THAN WHEN HE GOT HERE. MORE REDIRECTABLE AND COOPERATIVE. PATIENT WOULD BECOME DYSPNEIC ON EXCERRTION RESORTED TO USING THE URINAL IN THE BED. VITALS WERE STABLE THROUGH OUT THE NIGHT. PATIENT WAS SINUS TACHY THE WHOLE NIGHT. WILL CONTINUE TO MONITOR AND REPORT GIVEN TO DAY SHIFT RN.
[2021-08-20 11:07] LABS: Base Excess Venous 17.4 mmol/L; Bicarbonate Venous 37.2 mmol/L (24.0-30.0); PCO2 Venous 82.9 mmHg (38-42); PO2 Venous 68.1 mmHg (38-42); pH Blood Venous 7.33 (7.34-7.37)
--- NOTE | 2021-08-20 13:03 | NUR ---
LAB RESULTS: PT CO2 CONTINUES TO INCREASE, ORDER FOR BIPAP. RT NOTIFIED. PT BLADDER SCAN 417, STRAIGHT CATH ORDERED WITH 900CC OUT. NEW ORDER FOR FLOWMAX. URINE FEI WITH TINGE OF BLOOD.
--- NOTE | 2021-08-20 14:05 | NUR ---
BIPAP: PT PLACED ON BIPAP PER RT. PT HAD ON LESS THAN 10MIN AND TAKES OFF MASK. AKNOWLEDGES WHY HE NEEDS MASK BUT STATES " I WOULD RATHER THAN WEAR THAT THING." WILL NOTIFY
--- NOTE | 2021-08-20 17:46 | NUR ---
PT HAS BEEN STABLE THIS SHIFT. SATS STABLE ON 5L HIGH FLOW O2. PT CO2 INCREASED THIS SHIFT, BIPAP ORDERED BUT PT REFUSES. PT MENTATION IMPROVED FROM THIS AM. PENDING UA. PT SHOWED URINARY RETENTION ON BLADDER SCAN, STARIGHT CATH THIS AFTERNOON FOR 900CC. PT STARTED ON CARDIAC DIET. PT ST ON TELE WITH HR IN THE 100'S. PT IN CHAIR MOST OF THE SHIFT, 2 PERSON ASSIST. PT SL. CHAIR ALARM ON FOR SAFETY.
--- NOTE | 2021-08-21 06:53 | NUR ---
SHIFT SUMMARY PATIENT IS RESTING COMFORTABLY IN BED. BED IS IN LOW POSITION. BED EXIT ALARM IS ON. PATIENT DID MUCH BETTER DURING THE NIGHT. HE IS MORE COOPERATIVE LAST NIGHT. STILL REFUSED THE BIPAP MACHINE. VITALS WERE STABLE DURING THE NIGHT. WAS ON [place] NC AT 5L SATURATING >92% AFTER GETTING UP TO PEE HIS O2 DEMAND INCREASED AND HE IS CURRENTLY ON [place] 7L SATURATING >90%. WILL CONTINUE TO MONITOR REPORT GIVEN TO DAY SHIFT RN.
--- NOTE | 2021-08-21 10:48 | NUR ---
REPORT GIVEN TO JUDY EASON ON MEDICAL FLOOR.
--- NOTE | 2021-08-21 17:37 | NUR ---
SHIFT SUMMARY PATIENT IS ALERT AND ORIENTATED X4 WHEN AWAKE. PATIENT HAS BEEN RESTING OFF AND ON DURING SHIFT. PATIENT IS A TRANSFER FROM PCU THAT TRANSFERRED EARLY AFTERNOON. PATIENT IS ON TELE RUNNING 90S-100. PATIENT HAS NOT TRANSFERRED FROM BED TO CHAIR LIKE ON PREVIOUS SHIFTS. PATIENT DESATS WITH ACTIVITY AND IS CURRENTLY ON 6L 02 NASAL CANNULA. VITAL SIGNS REVIEWED. CALL LIGHT IN PLACE. BED IN LOCKED AND LOWEST POSTION. WILL CONTINUE TO MONITOR UNTIL END OF SHIFT.
--- NOTE | 2021-08-22 05:11 | NUR ---
PATIENT IS ALERT AND ORIENTED X3. PATIENT DENIES PAIN. PATIENT IS ABLE TO FOLLOW DIRECTIONS AND ABLE TO MAKE HIS NEEDS KNOWN. PATIENT IS WEEK AND STAYED IN BED ALL SHIFT RESTING IN BED. PATIENT ON HIGH FLOW 02, RUNNING AT 10L. PATIENT NOTED HE WAS BREATHING WITH USE OF ACCESSORY MUSCLES. BREATHING TREATMENTS ADMINISTERED ORDERED.
--- NOTE | 2021-08-22 08:11 | NUR ---
PATIENT FELL OUT OF BED THIS MORNING AT 0745. TWO RN'S SITTING OUTSIDE THE ROOM HEARD THE PATIENT FALL AND QUICKLY RAN TO HIS ROOM TO ASSIST AND CALLED OVER [facility] FOR ADDITIONAL HELP. THE BED ALARM WAS NOT IN PLACE. THE PATIENT WAS FOUND WITH HIS HEAD ON THE FOOT OF A TABLE AND THE REST OF HIS BODY LAYING ON THE GROUND. THE PATIENT WOULD NOT RESPOND TO STAFF SPEAKING TO HIM BUT HIS EYES WERE OPEN AND HE WAS ATTEMPTING TO GET UP FROM THE FLOOR BUT WAS TOO WEAK. A GAIT BELT WAS PLACED AROUND HIS TORSO AND STAFF LIFETED HIM TO THE SITTING POSTION. VITALS WERE TAKEN AT THIS TIME. BP 119/79 PULSE 100 BPM OXYGEN SATURATION WAS 86% ON 10L HIGH FLOW O2. THE PATIENT'S OXYGEN WAS THEN INCREASED TO 15L HIGH FLOW AND O2 SATS SHOWED 96%, ONCE BACK IN BED THE PATIENT WAS SATURATING 96% ON 10L HIGH FLOW. STAFF LIFTED THE PATIENT WITH THE ISH LIFT AND PLACED HIM BACK IN BED. BED ALARM IS ON. HE HAS A SKIN TEAR ON HIS RIGHT ELBOW. NO OPEN WOUNDS ON HIS HEAD. A HEAD CT WAS ORDERED. A VBG WAS ORDERE. WILL CONTINUE TO MONITOR
--- NOTE | 2021-08-22 08:57 | NUR ---
THE NURSING BIOMEDICAL EQUIPMENT TECHNICIAN, ALBINO WONG WAS NOTIFIED BY [employer]RIMP BOAT, RC. THIS RN TRIED TO NOTIFY FAMILY OF THE FALL BUT MARÍA THE PATIENT'S DAUGHTER DID NOT ANSWER HER HOME OR WORK PHONE AND HER VOICEMAIL WAS FULL. THE PATIENT'S GRANDSON SULEMA DID NOT ANSWER HIS HOME OR WORK PHONE AND HIS VOICEMAIL WAS FULL.
[2021-08-22 09:48] LABS: Base Excess Venous 22.7 mmol/L; Bicarbonate Venous 42.1 mmol/L (24.0-30.0); PO2 Venous 189 mmHg (38-42); pH Blood Venous 7.32 (7.34-7.37)
--- NOTE | 2021-08-22 16:12 | NUR ---
PATIENT IS ALERT. ORIENTED TO SELF AND FOLLOWING DIRECTIONS AT TIMES AND OTHER TIMES HE DOES NOT RESPOND TO STAFF. PATIENT HAD A FALL THIS MORNING. THE PATIENT'S DAUGHTER, JHON WAS NOTIFIED OF THIS FALL THIS AFTERNOON. PATIENT HAS REFUSED BIPAP. OXYGEN TITRATED DOWN TO 8L HIGHFLOW O2 THIS AFTERNOON. USES THE URINAL WITH ASSISTANCE, HE HAS BEEN ABLE TO ASK FOR ASSISTANCE. PATIENT HAS REMAINED ON BEDREST TODAY. A PALLIATIVE CARE CONSULT HAS BEEN PLACED TODAY. WILL CONTINUE TO MONITOR
--- NOTE | 2021-08-22 16:35 | NUR ---
RT CALLED AND ASKED TO SET UP BIPAP FOR THE PATIENT. RT SAID HE WILL HEAD THIS WAY
--- NOTE | 2021-08-22 17:36 | NUR ---
RT LEFT THE PATIENT'S ROOM TO GET THE BIPAP AT 1720.
--- NOTE | 2021-08-22 17:47 | NUR ---
Spoke with pt's daughter Elzbieta this evening. She is extremely tearful, and states she had to make medical choices for her mother about 10 years ago. She would like to speak to both her brother and sister steven, and we'll talk more tomorrow, planning for a noon meeting with the 2 sisters Yanira and Elzbieta. For steven, she states she wants to leave his code status as it is while giving her and her siblings a chance to talk. Relayed this conversation to Dr. Cabral. Tomorrow, Elzbieta and her dad will talk about code status if he's able. If he remains as he is steven, then Elzbieta will assist in care planning, decision making as the next of kin.
--- NOTE | 2021-08-22 19:40 | NUR ---
ASSUMED CARE. OPENS EYES TO VERBAL STIMULI, CONFUSED. ATTEMPTS SEVERAL TIMES TO ROVE THE BIPAP MASK. DOES NOT SPEAK. EXPLAINED TO HIM WHY THE MASK WAS ON AND THE IMPORTANCE OF IT. HE CALMED DOWN SOME BUT THEN ATTEMPTED AGAIN. TRIED TO TUCK THE BLANKETS OVER HIS ARMS. LUNG SOUNDS ARE VERY DIMINISHED AND TIGHT. ABDOMIN VERY ROUND DISTENDED, INCONTIENT OF URINE. NO SIGNS OF PAIN. ASKED THE NATIONAL GUARD TO SIT AND MAKE SURE HE DOES NOT PULL THE MASK OFF. WILL CALL MD FOR INCREASE IN ATIVAN AND POSSIBLE RSTRAINTS. BED ALARM IS ON, CALL LIGHT IN REACH.
--- NOTE | 2021-08-22 21:00 | NUR ---
RESTRAINTS PLACED. APPLIED SOFT MITTS TO HIS HANDS, ATTEMPTED TO EXPLAIN TO HIM WHAT THIS WAS FOR. NATIONAL GUARD TO BE THE SITTER, DUE TO RESTRAINT PLACEMENT. HE ATTEMPTED TO PULL OFF THE MITTS SEVERAL TIMES. WILL HAVE TO ADMINISTER MORE ATIVAN.
--- NOTE | 2021-08-22 22:00 | NUR ---
COLLEEN IS PULLING AGAINST THE MITTS AND HAS ALMOST HAD THEM OFF AT TIMES. THE SITTER HAS HAD TO KEEP HIM FROM PULLING THEM OFF. THEREFORE, PLACED IN SOFT WRIST RESTRAINTS INSTEAD OF THE MITTS. WILL GIVE ATIVAN TO HELP KEEP HIM CALM.
--- NOTE | 2021-08-22 22:50 | NUR ---
COLLEEN IS SLEEPING WELL AT THIS TIME, IS NO LONGER PULLING ON RESTRAINTS. REMOVED THE RIGHT WRIST RESTRAINT BUT KEPT THE LEFT ON. WILL CONTINUE TO MONITOR.
--- NOTE | 2021-08-23 01:15 | NUR ---
ATTENDS CHANGED, HE SPOKE ASKING WHY HE HAD ON THE RESTRAINTS AND THE MASK. i EXPLAINED TO HIM AGAIN. NOT SURE IF HE IS REEMEMBERING. PRIOR TO ATTENDS CHANGE HE HAD GOTTEN AHOLD THE TUBING FOR THE BIPAP AND PULLED IT OFF HIS MASK. OFFERRED HIM WATER, HE DID NOT RESPOND. HE ALLOWED ME TO ADJUST THE MASK AND PUT IT BACK ON. CALL LIGHT IN REACH, BED ALARM ON, SITTER IN PLACE.
[2021-08-23 05:06] LABS: BASOPHILS ABSOLUTE AUTO 0.01 K/mm3 (0.00-0.23); BASOPHILS PERCENT AUTO 0 % (0-2); EOSINOPHILS PERCENT AUTO 0 % (0-6); Hematocrit 37.9 % (37.0-53.0); Hemoglobin 11.4 g/dL (13.5-17.5); IMMATURE GRAN ABSOLUTE AUTO 0.07 K/mm3 (0.00-0.10); IMMATURE GRAN PERCENT AUTO 1 % (0-1); LYMPHOCYTES ABSOLUTE AUTO 0.43 K/mm3 (0.84-5.20); LYMPHOCYTES PERCENT AUTO 4 % (21-46); MONOCYTES ABSOLUTE AUTO 0.34 K/mm3 (0.16-1.47); MONOCYTES PERCENT AUTO 3 % (4-13); Mean Corpuscular HGB 31.8 pg (26.0-34.0); Mean Corpuscular HGB Conc 30.1 g/dL (31.5-36.5); Mean Corpuscular Volume 106 fL (80-100); Mean Platelet Volume 12.7 fL (9.1-12.4); NEUTROPHILS ABSOLUTE AUTO 11.06 K/mm3 (1.96-9.15); NEUTROPHILS PERCENT AUTO 93 % (41-73); Platelet Count 135 K/mm3 (150-400); RDW Standard Deviation 46.5 fL (35.1-46.3); Red Blood Cell Count 3.59 M/mm3 (4.30-5.90); White Blood Cell Count 11.91 K/mm3 (4.00-11.30)
[2021-08-23 05:07] LABS: Base Excess Venous 27.4 mmol/L; Bicarbonate Venous 47.3 mmol/L (24.0-30.0); PCO2 Venous 101 mmHg (38-42); PO2 Venous 88.9 mmHg (38-42); pH Blood Venous 7.33 (7.34-7.37)
[2021-08-23 05:32] LABS: Alanine Aminotransfer (ALT/SGP 144 U/L (12-78); Albumin, Blood 2.9 g/dL (3.4-5.0); Albumin/Globulin Ratio 0.8 (0.8-1.8); Alk Phos 47 U/L (50-136); Aspartate Aminotrans (AST/SGOT 71 U/L (12-37); Bilirubin, Total 0.8 mg/dL (0.1-1.0); Blood Urea Nitrogen 56 mg/dL (8-24); Calcium, Blood 8.7 mg/dL (8.5-10.1); Chloride, Blood 99 mmol/L (98-108); Creatinine, Blood 0.82 mg/dL (0.60-1.20); Globulin, Blood 3.7 g/dL (2.2-4.0); Glomerular Filtration Rate >60 (60-); Glucose, Blood 143 mg/dL (70-99); Sodium, Blood 144 mmol/L (136-145); Total Protein, Blood 6.6 g/dL (6.4-8.2)
[2021-08-23 05:38] LABS: Anion Gap Unable to Calculate mmol/L (6-16)
[2021-08-23 05:39] LABS: CO2, Blood >45 mmol/L (21-32)
--- NOTE | 2021-08-23 07:09 | NUR ---
SHIFT SUMMARY: PLACED ON BIPAP AT START OF SHIFT, HE CONTINUED TO PULL MASK OFF. CONFUSED. NEW ORDERS FOR ATIVAN Q2HRS, AND WRIST RESTRAINTS. ATTEMPTED MITTS FIRST, UNSUCCESSFUL. CHANGED TO SOFT WRIST RESTRAINTS, AND PLACED A SITTER TO MONITOR. ATIVAN WAS GIVEN ON AVERAGE EVERY 3-4 HOURS. ONCE ATIVAN IS GIVEN HE IS ABLE TO HAVE JUST ONE RESTRAINT ON TILL HE STARTS PULLING THINGS OFF AGAIN. DID HAVE PERIOD WHERE HE WOKE UP AND ASKED WHAT IS GOING ON AND WHY HE WAS IN RESTRAINTS AND MASK, EXPLAINED THE SITUATION BUT HE WAS NOT ABLE TO RETAIN. LS COURSE. INCONTIENT. BIPAP IS SET ON 10/31 WITH 40% FIO2. SATS ARE 96%. SPOKE TO MD THIS AM DUE TO CRITICAL LAB OF POTASSIUM 6 AND CARBON DIOXIDE >45. NEW ORDERS NOTED, ASKED ABG TO BE DONE TO RECHECK BLOOD GAS. DISCUSSED WITH JONATHAN RN TO ALLOW ATIVAN TO WEAR OFF AND GIVE BREAK FROM BIPAP IN THE DAY AND WE WILL PLACE IT BACK ON HIM AT NIGHT. MD AGREED WITH THIS PLAN. REPORT GIVEN TO JONATHAN EASON. BED ALARM ON, CALL LIGHT IN REACH. CURRENTLY ONLY HAS ONE WRIST RESTRAINT ON.
[2021-08-23 08:09] LABS: PCO2 Arterial 104 mmHg (35-45); PO2 Arterial 76.9 mmHg (80-100); pH Blood Arterial 7.32 (7.35-7.45)
--- NOTE | 2021-08-23 09:43 | NUR ---
ICU TRANSFER PT REMAINED ON BIPAP WITH SOFT WRIST RESTRAINTS AND SITTER T/O NIGHT. MD IN TO ASSESS PT AND DETERMINED PT MAY NEED INTUBATION. PALLATIVE CARE RN SPOKE WITH FAMILY AND PLANS TO TRANSFER PT TO ICU ESTABLISHED. MD ORDERS RECEIVED AND IMPLEMENTED. REPORT CALLED TO YUMI MONTAÑO. PT TRANSPORTED VIA BED BY FILL MANAGER AND RT TO ICU-5
--- NOTE | 2021-08-23 09:49 | NUR ---
Made a visit to pt this am, as his condition worsened overnight. Dr. Cabral and Dr. Metcalf plan to transfer pt to ICU as he is currently in restraints with Bipap in place and minimally verbally responsive, unable to respond to commands. He is retaining more C02 than last evening. He is in the restraints due to attempts to pull off the bipap mask. Placed call to pt's daughter Elzbieta, who is his primary decision maker if he is unable to make decisions. I explain the pt's condition has worsened overnight, and pt will need to be transferred to ICU if they want to pursue more invasive treatment. At this time, Elzbieta states she does want to pursue mechanical ventilation if needed, but if his heart stops, does not want CPR performed. She and her sister will be here soon to see patient before making any further decisions. Dr Cabral is aware.
[2021-08-23 10:03] LABS: Albumin, Blood 2.9 g/dL (3.4-5.0); Blood Urea Nitrogen 56 mg/dL (8-24); Bun/Creatinine Ratio 64.7 (12.0-20.0); Calcium, Blood 8.6 mg/dL (8.5-10.1); Chloride, Blood 100 mmol/L (98-108); Creatinine, Blood 0.87 mg/dL (0.60-1.20); Glomerular Filtration Rate >60 (60-); Glucose, Blood 137 mg/dL (70-99); Phosphorus, Blood 2.8 mg/dL (2.5-4.9); Sodium, Blood 144 mmol/L (136-145)
[2021-08-23 10:05] LABS: Anion Gap Unable to Calculate mmol/L (6-16)
[2021-08-23 10:06] LABS: CO2, Blood >45 mmol/L (21-32)
[2021-08-23 10:28] LABS: Adenovirus Not Detected (NOT DETECT); Coronavirus 229E Not Detected (NOT DETECT); Coronavirus HKU1 Not Detected (NOT DETECT); Coronavirus NL63 Not Detected (NOT DETECT); Coronavirus OC43 Not Detected (NOT DETECT); Human Metapneumovirus Not Detected (NOT DETECT); Human Rhinovirus/Enterovirus Not Detected (NOT DETECT); Influenza A/2009-H1 Not Detected (NOT DETECT); Influenza A/H1 Not Detected (NOT DETECT); Influenza A/H3 Not Detected (NOT DETECT); Influenza B Not Detected (NOT DETECT); Parainfluenza Virus 1 Not Detected (NOT DETECT); Parainfluenza Virus 2 Not Detected (NOT DETECT); Parainfluenza Virus 3 Detected (NOT DETECT); Parainfluenza Virus 4 Not Detected (NOT DETECT); Respiratory Syncytial Virus Not Detected (NOT DETECT); SARS-Cov-2 (COVID-19), BioFire Not Detected (NOT DETECT)
[2021-08-23 10:29] LABS: Bordetella pertussis Not Detected (NOT DETECT); Chlamydophila pneumoniae Not Detected (NOT DETECT); Mycoplasma pneumoniae Not Detected (NOT DETECT)
--- NOTE | 2021-08-23 10:30 | NUR ---
TRANSFER TO ICU: REPORT RECEIVED FROM CRISTHIAN Ramirez RN ON MEDICAL FLOOR. THE PT ARRIVED TO ICU-05 AT APPROX 0945. ON ARRIVAL, THE PT IS WEARING SOMNOLENT. HE MOVES EXTREMITIES SPONTANEOUSLY & APPEARS AGITATED W/ INCREASED STIMULUS BUT IS SAYING NO WORDS. BIPAP IN PLACE W/ SETTINGS 12/6 & 35% FIO2, INCREASED TO 14/6 BY RT AT BEDSIDE. O2 SATS > 90% ON AVG. MONITOR SHOWS SR W/ HR 80-90s, TACHYCARDIA NOTED W/ AGITATED. BP STABLE. PER REPORT, PT INCONTINENT OF BOWEL & BLADDER, ATTENDS IN PLACE ON ARRIVAL. DUNBAR CATHETER PLACED BY THIS RN FOR STRICT I&O, APPROX 700 MLS OUTPUT NOTED IMMEDIATELY AFTER INSERTION. SKIN OVERALL FRAGILE W/ SCATTERED BRUISING NOTED TO BILAT FOREARMS. SKIN TEAR TO R ELBOW W/ DRESSING CDI. PALLIATIVE CARE RNTUCKER, AT BEDSIDE W/ FAMILY FOR DISCUSSION OF PT's CODE STATUS & LEVEL OF INVASIVE TREATMENTS THAT HE WOULD HAVE DESIRED. THIS RN HAS PROVIDED THEM W/ AN UPDATE REGARDING PT's CURRENT STATUS. WILL CONTINUE TO MONITOR & UPDATE NEEDED.
[2021-08-23 10:35] LABS: Source, Urine Catheter
[2021-08-23 10:39] LABS: Appearance, Urine Clear (Clear); Bilirubin, Urine Neg (Neg); Blood, Urine 3+ (Neg); Color, Urine Amber (P-Yellow); Glucose Qualitative, Urine 1+ (Neg); Ketones, Urine 1+ (Neg); Leukocyte Esterase, Urine Neg (Neg); Nitrite, Urine Neg (Neg); Protein, Urine 1+ (Neg); Specific Gravity, Urine 1.015 (1.003-1.022); Urobilinogen, Urine 1+ (Normal)
[2021-08-23 10:50] LABS: Bacteria Not Seen /hpf; Squamous Epithelial Cells Few /hpf (Few); White Blood Cells, Urine Not Seen /hpf (0-5)
--- NOTE | 2021-08-23 18:16 | NUR ---
SHIFT SUMMARY: NO ACUTE CHANGES SINCE PRIOR UPDATES. PT REMAINS W/ AMS, OVERALL SOMNOLENT. AWAKENS SOMEWHAT TO VERBAL & TACTILE STIMULUS, IS ABLE TO TELL THIS RN HIS NAME BUT IS UNABLE TO ANSWER ANY OTHER ORIENTATION QUESTIONS. BIPAP REMAINS IN PLACE W/ SETTINGS: 14/6 & 35% FIO2, O2 SATS > 90% ON AVG. MONITOR SHOWS SR-ST W/ HR 90-100s, BP STABLE. NPO R/T BIPAP USE & AMS. DUNBAR PATENT/ DRAINING DARK YELLOW URINE. SKIN CONDITION OVERALL INTACT, Q2H REPOSITIONING TO MAINTAIN SKIN INTEGRITY. WILL CONTINUE TO MONITOR & REPORT OFF TO ONCOMING RN.
--- NOTE | 2021-08-23 20:41 | NUR ---
ASSUMED CARE @1900 PATIENT IS A&O X NONE. REPSONDS TO VERBAL STIMULI/GROANS AND BECOMES AGITATED WITH ANY INCREASE IN STIMULI. MOVES ALL EXTREMETIES. PUPILS REACTIVE TO LIGHT. LUNGS DIMINISHED T/O. BIPAP 14/ FI02 45%, RR 16-20, 02 SATS 94%. HR SR @80s. TRACE EDEMA T/O. BOWEL TONES ACTIVE. DUNBAR DRAINING CLEAR TO FEI URINE. 2-3 PERSON MAXIMUM ASSIST WITH REPOSITIONING. BILATERAL WRIST RESTRAINTS IN PLACE.
[2021-08-24 03:57] LABS: Base Excess Venous 31.7 mmol/L; Bicarbonate Venous 52.1 mmol/L (24.0-30.0); PCO2 Venous 84.9 mmHg (38-42); PO2 Venous 41.8 mmHg (38-42); pH Blood Venous 7.43 (7.34-7.37)
[2021-08-24 04:09] LABS: BASOPHILS PERCENT AUTO 0 % (0-2); EOSINOPHILS PERCENT AUTO 0 % (0-6); Hematocrit 36.2 % (37.0-53.0); Hemoglobin 11.1 g/dL (13.5-17.5); IMMATURE GRAN ABSOLUTE AUTO 0.05 K/mm3 (0.00-0.10); IMMATURE GRAN PERCENT AUTO 1 % (0-1); LYMPHOCYTES ABSOLUTE AUTO 0.52 K/mm3 (0.84-5.20); LYMPHOCYTES PERCENT AUTO 5 % (21-46); MONOCYTES ABSOLUTE AUTO 0.22 K/mm3 (0.16-1.47); MONOCYTES PERCENT AUTO 2 % (4-13); Mean Corpuscular HGB Conc 30.7 g/dL (31.5-36.5); Mean Corpuscular Volume 104 fL (80-100); Mean Platelet Volume 12.8 fL (9.1-12.4); NEUTROPHILS PERCENT AUTO 93 % (41-73); Platelet Count 103 K/mm3 (150-400); RDW Standard Deviation 46.1 fL (35.1-46.3); Red Blood Cell Count 3.47 M/mm3 (4.30-5.90); White Blood Cell Count 10.59 K/mm3 (4.00-11.30)
[2021-08-24 04:26] LABS: Albumin, Blood 2.8 g/dL (3.4-5.0); Blood Urea Nitrogen 52 mg/dL (8-24); Bun/Creatinine Ratio 60.5 (12.0-20.0); Calcium, Blood 8.9 mg/dL (8.5-10.1); Chloride, Blood 99 mmol/L (98-108); Creatinine, Blood 0.86 mg/dL (0.60-1.20); Glomerular Filtration Rate >60 (60-); Glucose, Blood 146 mg/dL (70-99); Phosphorus, Blood 3.5 mg/dL (2.5-4.9); Potassium, Blood 5.4 mmol/L (3.5-5.5); Sodium, Blood 144 mmol/L (136-145)
[2021-08-24 04:30] LABS: Anion Gap Unable to Calculate mmol/L (6-16); CO2, Blood >45 mmol/L (21-32)
--- NOTE | 2021-08-24 07:26 | NUR ---
SHIFT SUMMARY PATIENT ORIENTED TO NAME AT TIMES, MOSTLY MUMBLES INCOHERENTLY. RESPONDS TO VERBAL STIMULI. REMAINS ON BIPAP 09/05 FI02 45%. 02 SATS 94%. LUNGS SOUNDS COARSE UN THE UPPER LOBES AND DIM IN THE BASES. HR SR @80s. NO BOWEL MOVEMENT THIS SHIFT. DUNBAR DRAINING FEI TO ORANGE URINE. DISCUSSED CRITICAL LABS WITH CHARGE NURSE. REPORT GIVEN TO DAY SHIFT RN.
--- NOTE | 2021-08-24 08:00 | NUR ---
DR. HOLLINGSWORTH UPDATED ON PATIENT STATUS. INFORMED OF AM LABS. INFORMED THAT PATIENT RECEIVED PRN ATIVAN X 3 ON TITLE I ASSISTANT AND OT THIS SHIFT THUS FAR. INFORMED THAT PRN ATIVAN MAY BE MAKING PATIENT MORE CONFUSED. INFORMED THAT PATIENT HAS NOT BEEN ABLE TO EAT AND DRINK AND IS NOT ON ANY MAINTENANCE FLUID AND DOES NOT HAVE BLOOD SUGAR CHECKS. STATED THEY WOULD PUT ORDERS IN. NO ORDERS RECEIVED AT THIS TIME. WILL CONTINUE TO MONITOR.
--- NOTE | 2021-08-24 08:40 | NUR ---
INITIAL ASSESSMENT PATIENT ALERT AND ORIENTED X 0. PATIENT UNABLE TO FOLLOW COMMAND TO OPEN MOUTH FOR ORAL CARE. PATIENT MUMBLING INCOHORENTLY. PATIENT AFEBRILE. PATIENT IN RESTRAINTS PULLS AT LINES/ CORDS AND BIPAP MASK. PATIENT ON BIPAP 14/6, RATE 12 AND 30% FIO2. PATIENT TOLERATED NC FOR AROUND 15 MINUTES THIS AM FOR ORAL/ AM CARE AND THEN HAD TO BE PLACED BACK ON BIPAP MASK FOR O2 IN THE 80S. LUNGS DIM AND COARSE THROUGHOUT. PATIENT IN SR, HR 70S TO 90S. SBP 120S TO 140S. ABDOMEN MILDLY DISTENDED, SOFT, WITH HYPOACTIVE BOWEL SOUNDS NOTED. DATE OF LAST BM UNKNOWN. DUNBAR DRAINING FEI COLORED URINE. SKIN FRAGILE. BRUISES NOTED T/O BODY. SKIN TEAR NOTED TO R ELBOW. DRY SCALES/ PLAQUE TO BOTTOM OF BOTH FEET. PG SALINE LOCKED. BED LOW, CALL LIGHT IN REACH. WILL CONTINUE TO MONITOR PATIENT FREQUENTLY THROUGHOUT SHIFT.
--- NOTE | 2021-08-24 13:25 | NUR ---
PATIENT AFEBRILE. PATIENT NOW ON PRECEDEX DRIP AT 0.4 MCG/ KG/ HOUR. PATIENT RESPONDING TO VERBAL STIMULI. PATIENT NOW ABLE TO OPEN EYES. PATIENT NOW ABLE TO OPEN MOUTH FOR ORAL CARE WHEN NURSE ASKS. PATIENT LESS AGITATED. HR 80S TO LOW 100S. SBP 1-TEENS TO 150S. PATIENT ON BIPAP 14/6 AND 30 TO 40% FIO2 OR ON NC FROM 1 TO 6 L. PATIENT HAS MOIST, NONPRODUCTIVE COUGH. CLINIMIX STARTED AND IS INFUSING AT 100 MLS/ HOUR. BLOOD SUGAR 120; NO COVERAGE INDICATED. NO SIGNS OF PAIN OR DISCOMFORT NOTED. NO OTHER ACUTE CHANGES TO NOTE ON AT THIS TIME. WILL CONTINUE TO MONITOR.
--- NOTE | 2021-08-24 16:30 | NUR ---
PATIENT AFEBRILE. HR 60S TO 90S. SBP 90S TO 140S. BIPAP FIO2 DECREASED FROM 35 TO 30%. PRECEDEX AT 0.3. PRN ATIVAN GIVEN FOR INCREASED AGITATION. PATIENT SLEEPING SOUNDLY ON PRECEDEX AT 0.4, HOWEVER BP AND HR DECREASED ON THAT DOSE. PATIENT RECEIVED COMPLETE BED BATH. NO OTHER ACUTE CHANGES TO NOTE ON AT THIS TIME. WILL CONTINUE TO MONITOR.
--- NOTE | 2021-08-24 18:36 | NUR ---
SHIFT SUMMARY PATIENT REMAINED UNABLE TO ANSWER ANY ORIENTATION QUESTIONS. PATIENT OCCASIONALLY FOLLOWED DIRECTIONS TO OPEN MOUTH FOR ORAL CARE. PATIENT REMAINS MUMBLING INCOHERENTLY. PATIENT STARTED ON PRECEDEX DRIP THIS SHIFT. PATIENT STILL REMAINS AGITATED AT TIMES BUT IT HAS HELPED. PATIENT HAS REMAINED AFEBRILE. LUNGS REMAINED DIMINISHED AND COARSE THROUGHOUT. PATIENT REMAINED ON BIPAP 14/6, RATE OF 12. FIO2 30 TO 40% FIO2. PATIENT ABLE TO TOLERATE BREAKS FROM ABOUT 15 MINUTES TO AN HOUR ON NC 1 L TO 6 L. PATIENT'S BREATHING CONTINUES TO SOUND MOIST. PATIENT REMAINED SR TO ST, HR 50S TO LOW 100S. SBP 90S TO 160S. PATIENT SLEEPING SOUNDLY ON PRECEDEX AT 0.4 MCG/ KG/ HOUR HOWEVER DID BECOME HYPOTENSIVE AND BRADYCARDIC. PATIENT STARTED ON CLINIMIX THIS SHIFT SINCE IS NPO. NO BM THIS SHIFT. DUNBAR DRAINED 800 MLS OF FEI COLORED URINE. NO CHANGES TO SKIN NOTED. PATIENT REPOSITIONED THROUGHOUT SHIFT. PATIENT HAD COMPLETE BED BATH. BLOOD SUGARS RANGED FROM 120 TO 164. PATIENT APPEARS COMFORABLE AT THIS TIME. BED LOW, CALL LIGHT IN REACH. REPORT WILL BE GIVEN TO ASSUMING DATA MINER NURSE SHORTLY.
--- NOTE | 2021-08-24 20:02 | NUR ---
PATIENT REPORT RECEIVED FROM JONATHAN DICKSON RN PATIENT APPEAR ANXIOUS, RESTLESS BPAP 14/6/12/30% ST NOTED IN THE MONITOR WILL TO CONTINUED TO MONIOR
--- NOTE | 2021-08-24 20:21 | NUR ---
PATIENT'S REPORT RECEIVED FROM JONATHAN GARCIA PATIENT AAOX1, PARTIENT APPEAR ON CALM NSR NOTED IN THE MONITOR PATIENT ON CPAP 10/30% WILL TO CONTINUE TO MONITOR
[2021-08-25 04:30] LABS: BASOPHILS PERCENT AUTO 0 % (0-2); EOSINOPHILS PERCENT AUTO 0 % (0-6); Hematocrit 31.9 % (37.0-53.0); IMMATURE GRAN ABSOLUTE AUTO 0.03 K/mm3 (0.00-0.10); IMMATURE GRAN PERCENT AUTO 1 % (0-1); LYMPHOCYTES ABSOLUTE AUTO 0.21 K/mm3 (0.84-5.20); LYMPHOCYTES PERCENT AUTO 3 % (21-46); MONOCYTES ABSOLUTE AUTO 0.17 K/mm3 (0.16-1.47); MONOCYTES PERCENT AUTO 3 % (4-13); Mean Corpuscular HGB 31.9 pg (26.0-34.0); Mean Corpuscular HGB Conc 31.3 g/dL (31.5-36.5); Mean Corpuscular Volume 102 fL (80-100); NEUTROPHILS PERCENT AUTO 93 % (41-73); NRBC ABSOLUTE 0.02 K/mm3 (0.00-0.02); NRBC Auto 0.3 /100 WBC (0.0-0.2); Platelet Count 59 K/mm3 (150-400); RDW Coefficient Variation 11.9 % (11.7-14.2); RDW Standard Deviation 44.2 fL (35.1-46.3); Red Blood Cell Count 3.13 M/mm3 (4.30-5.90); White Blood Cell Count 6.21 K/mm3 (4.00-11.30)
[2021-08-25 04:33] LABS: Mean Platelet Volume 13.4 fL (9.1-12.4)
[2021-08-25 04:38] LABS: Base Excess Venous 23.6 mmol/L; Bicarbonate Venous 44.7 mmol/L (24.0-30.0); PCO2 Venous 74.8 mmHg (38-42); PO2 Venous 134 mmHg (38-42); pH Blood Venous 7.42 (7.34-7.37)
[2021-08-25 04:47] LABS: Magnesium, Blood 3.2 mg/dL (1.6-2.4)
[2021-08-25 04:50] LABS: Albumin, Blood 2.5 g/dL (3.4-5.0); Anion Gap Unable to Calculate mmol/L (6-16); Blood Urea Nitrogen 57 mg/dL (8-24); Bun/Creatinine Ratio 68.9 (12.0-20.0); CO2, Blood 42 mmol/L (21-32); Calcium, Blood 8.1 mg/dL (8.5-10.1); Chloride, Blood 103 mmol/L (98-108); Creatinine, Blood 0.83 mg/dL (0.60-1.20); Glomerular Filtration Rate >60 (60-); Glucose, Blood 125 mg/dL (70-99); Phosphorus, Blood 4.8 mg/dL (2.5-4.9); Potassium, Blood 5.8 mmol/L (3.5-5.5); Sodium, Blood 144 mmol/L (136-145)
--- NOTE | 2021-08-25 07:47 | NUR ---
DR. KING UPDATED ON PATIENT STATUS. INFORMED THAT PATIENT POTASSIUM DOWN FROM 6.3 TO 5.8. INFORMED THAT PATIENT RECEIVED 5 UNITS INSULIN, 1/2 AMP D50 AND 1 G CALCIUM GLUCONATE ON HOME THEATER SPECIALIST. INFORMED THAT PATIENT HAS PO LOKELMA ORDERED BUT THAT IT HAS NOT BEEN ABLE TO BE GIVEN BECAUSE PATIENT CANNOT SWALLOW AT THIS TIME. INFORMED THAT BUN INCREASED. INFORMED THAT PLATELETS 59 THIS AM. NO ORDERS OBTAINED AT THIS TIME. WILL CONTINUE TO MONITOR.
--- NOTE | 2021-08-25 08:00 | NUR ---
INITIAL ASSESSMENT PATIENT ON PRECEDEX AT 0.7 MCG/ KG/ HOUR WHEN ARRIVED. PRECEDEX DECREASED TO SB FOR BRADYCARDIA. PATIENT NOT OPENING EYES. PATIENT DOES OPEN MOUTH FOR ORAL CARE BUT IS NOT ANSWERING ANY QUESTIONS AND DOES NOT FOLLOW ANY OTHER COMMANDS AT THIS TIME. PATIENT AFEBRILE. NO SIGNS OF PAIN NOTED AT THIS TIME. PATIENT ON BIPAP 14/6, RATE OF 12 AND 30% FIO2 UPON ARRIVAL. PATIENT PLACED ON 2 L NC FOR AM/ ORAL CARE THIS AM AND HAS CONTINUED TO SAT 90% AND GREATER. LUNGS DIM AND CRACKLY THROUGHOUT. PATIENT HAS SOUND OF WET BREATHING NOTED FROM STANDING AT BEDSIDE. PATIENT HAS WEAK, NONPRODUCTIVE COUGH. PATIENT SB, HR 38 TO 50S. SBP LOW 100S TO 1-TEENS. ABD MILDLY DISTENDED, SOFT, WITH HYPOACTIVE BS NOTED. NO BM DOCUMENTED. DR. HOLLINGSWORTH INFORMED THAT MAY NEED SOME BOWEL CARE. PATIENT REMAINS NPO FOR ASPIRATION PRECAUTION. DUNBAR DRAINING FEI COLORED URINE WITH RED SEDIMENT NOTED. SKIN FRAGILE, PALE. BRUISES NOTED T/O BODY. MEPILEX TO SKIN TEAR ON R ELBOW. CLINIMIX INFUSING AT 100 MLS/ HOUR. BED LOW, CALL LIGHT IN REACH. WILL CONTINUE TO MONITOR PATIENT FREQUENTLY THROUGHOUT SHIFT.
--- NOTE | 2021-08-25 08:30 | NUR ---
DR. HOLLINGSWORTH INFORMED THAT PATIENT LUNG SOUNDS CRACKLY AND THAT BREATHING SOUNDS AUDIBLE MOIST EVEN WHEN STANDING AT BEDSIDE. NO ORDER OBTAINED AT THIS TIME.
--- NOTE | 2021-08-25 12:45 | NUR ---
PATIENT AFEBRILE. PATIENT ON PRECEDEX DRIP AT 0.4 MCG/ KG/ HOUR. PATIENT RESPONDING TO VERBAL STIMULI. PATIENT FOLLOWING A COUPLE COMMANDS. PATIENT ABLE TO ANSWER THAT HE IS IN [place]. PATIENT UNABLE TO ANSWER OTHER ORIENTATION QUESTIONS. SPEECH GARBLED. HR 50S TO 90S. SBP 90S TO 160S. PATIENT REMAINS ON EITHER BIPAP AT 14/6 AND 30% FIO2 OR ON 2 L NC FOR SHORT BREAKS. BLOOD SUGAR OF 150; COVERAGE GIVEN. NO OTHER ACUTE CHANGES TO NOTE ON AT THIS TIME. UPDATED PATIENT'S DAUGHTER, RACHANA, CHANDRA. WILL CONTINUE TO MONITOR.
--- NOTE | 2021-08-25 16:20 | NUR ---
PATIENT AFEBRILE. HR 40S TO 70S. SBP 90S TO 130S. PATIENT ON NC BREAK AT 1 TO 4 L NC. PRECEDEX AT 0.3 MCG/ KG/ HR. HAVE NOTED SKIN BREAKDOWN ON FACE FROM FULL BIPAP MASK. ADHESIVE GEL PATCHES APPLIED TO AREAS AND PATIENT CONTINUES TO BE GIVEN BREAKS ON NC. WILL CONTINUE TO MONITOR.
[2021-08-25 18:23] LABS: BASOPHILS PERCENT AUTO 0 % (0-2); EOSINOPHILS PERCENT AUTO 0 % (0-6); Hematocrit 32.1 % (37.0-53.0); IMMATURE GRAN ABSOLUTE AUTO 0.04 K/mm3 (0.00-0.10); IMMATURE GRAN PERCENT AUTO 1 % (0-1); LYMPHOCYTES ABSOLUTE AUTO 0.49 K/mm3 (0.84-5.20); LYMPHOCYTES PERCENT AUTO 6 % (21-46); MONOCYTES PERCENT AUTO 3 % (4-13); Mean Corpuscular HGB 31.3 pg (26.0-34.0); Mean Corpuscular HGB Conc 31.2 g/dL (31.5-36.5); Mean Corpuscular Volume 101 fL (80-100); NEUTROPHILS ABSOLUTE AUTO 6.88 K/mm3 (1.96-9.15); NEUTROPHILS PERCENT AUTO 91 % (41-73); Platelet Count 61 K/mm3 (150-400); RDW Coefficient Variation 11.9 % (11.7-14.2); RDW Standard Deviation 43.6 fL (35.1-46.3); Red Blood Cell Count 3.19 M/mm3 (4.30-5.90); White Blood Cell Count 7.61 K/mm3 (4.00-11.30)
--- NOTE | 2021-08-25 18:26 | NUR ---
SHIFT SUMMARY PATIENT NEURO IMPROVED SLIGHTLY DURING SHIFT. PATIENT ABLE TO FOLLOW A COUPLE VERY SIMPLE COMMANDS AND LATER ABLE TO STATE THE [place]OWN THAT [place] IN. PATIENT REMAINED ON PRECEDEX DRIP. PRECEDEX SB TO 0.6 MCG/ KG/ HOUR TO HELP WITH AGITATION. PRECEDEX DOES MAKE PATIENT HYPOTENSIVE AND BRADYCARDIC. PATIENT REMAINED AFEBRILE. PATIENT REMAINED ON EITHER BIPAP AT 14/6 AND 30% OR ON 1 TO 4 L NC. PATIENT CONTINUED TO HAVE WEAK, NONPRODUCTIVE COUGH. PATIENT REMAINED SB TO SR, HR 38 TO 90S. SBP 90S TO 160S. NO BM THIS SHIFT. PRN SUPPOSITORY GIVEN. CLINIMIX DC'D AND PPN STARTED AND INFUSING AT 75 MLS/ HOUR. DUNBAR DRAINED 1350 MLS OF FEI COLORED URINE WITH RED SEDIMENT NOTED. SKIN BREAKDOWN NOTED ON BILAT CHEEKS FROM FULL BIPAP MASK. ADHESIVE GEL PATCHES APPLIED AND PATIENT CONTINUED TO BE GIVEN BREAKS ON NC THROUGHOUT DAY. HEPARIN DC'D THIS SHIFT AND SCDS ORDERED AND APPLIED. BLOOD SUGARS 120S TO 150S. FAMILY CAME TO WINDOW TODAY TO SEE PATIENT. REPORT WILL BE GIVEN TO ASSUMING LOCKSTITCH LINING MAKER NURSE SHORTLY.
[2021-08-25 18:37] LABS: Mean Platelet Volume 13.4 fL (9.1-12.4)
--- NOTE | 2021-08-25 19:56 | NUR ---
PATIENT REPORT RECEIVED FROM 1899 PATIENT CONFUSED AAOXI SELF NSR NOTED IN THE MONITOR WILL TO CONTINUED TO MONITOR
[2021-08-26 04:17] LABS: BASOPHILS PERCENT AUTO 0 % (0-2); EOSINOPHILS ABSOLUTE AUTO 0.01 K/mm3 (0.00-0.68); EOSINOPHILS PERCENT AUTO 0 % (0-6); Hematocrit 29.6 % (37.0-53.0); Hemoglobin 9.5 g/dL (13.5-17.5); IMMATURE GRAN ABSOLUTE AUTO 0.04 K/mm3 (0.00-0.10); IMMATURE GRAN PERCENT AUTO 1 % (0-1); LYMPHOCYTES ABSOLUTE AUTO 0.31 K/mm3 (0.84-5.20); LYMPHOCYTES PERCENT AUTO 5 % (21-46); MONOCYTES ABSOLUTE AUTO 0.18 K/mm3 (0.16-1.47); MONOCYTES PERCENT AUTO 3 % (4-13); Mean Corpuscular HGB 32.4 pg (26.0-34.0); Mean Corpuscular HGB Conc 32.1 g/dL (31.5-36.5); Mean Corpuscular Volume 101 fL (80-100); NEUTROPHILS ABSOLUTE AUTO 6.08 K/mm3 (1.96-9.15); NEUTROPHILS PERCENT AUTO 92 % (41-73); Platelet Count 60 K/mm3 (150-400); RDW Coefficient Variation 11.9 % (11.7-14.2); RDW Standard Deviation 43.6 fL (35.1-46.3); Red Blood Cell Count 2.93 M/mm3 (4.30-5.90); White Blood Cell Count 6.62 K/mm3 (4.00-11.30)
[2021-08-26 04:44] LABS: Albumin, Blood 2.4 g/dL (3.4-5.0); Anion Gap Unable to Calculate mmol/L (6-16); Blood Urea Nitrogen 56 mg/dL (8-24); Bun/Creatinine Ratio 71.4 (12.0-20.0); CO2, Blood 43 mmol/L (21-32); Calcium, Blood 7.7 mg/dL (8.5-10.1); Chloride, Blood 100 mmol/L (98-108); Creatinine, Blood 0.78 mg/dL (0.60-1.20); Glomerular Filtration Rate >60 (60-); Glucose, Blood 219 mg/dL (70-99); Phosphorus, Blood 4.7 mg/dL (2.5-4.9); Potassium, Blood 5.7 mmol/L (3.5-5.5); Sodium, Blood 141 mmol/L (136-145)
[2021-08-26 10:10] LABS: Triglycerides 305 mg/dL (30-160)
[2021-08-26 12:11] LABS: Base Excess Venous 19.6 mmol/L; Bicarbonate Venous 40.4 mmol/L (24.0-30.0); PCO2 Venous 72.2 mmHg (38-42)
--- NOTE | 2021-08-26 15:15 | NUR ---
review of pt with physician will schedule for family meeting tomorrow.
[2021-08-26 17:49] LABS: BASOPHILS ABSOLUTE AUTO 0.01 K/mm3 (0.00-0.23); BASOPHILS PERCENT AUTO 0 % (0-2); EOSINOPHILS PERCENT AUTO 0 % (0-6); Hematocrit 31.8 % (37.0-53.0); Hemoglobin 10.2 g/dL (13.5-17.5); IMMATURE GRAN ABSOLUTE AUTO 0.07 K/mm3 (0.00-0.10); IMMATURE GRAN PERCENT AUTO 1 % (0-1); LYMPHOCYTES ABSOLUTE AUTO 0.32 K/mm3 (0.84-5.20); LYMPHOCYTES PERCENT AUTO 4 % (21-46); MONOCYTES ABSOLUTE AUTO 0.26 K/mm3 (0.16-1.47); MONOCYTES PERCENT AUTO 3 % (4-13); Mean Corpuscular HGB 31.9 pg (26.0-34.0); Mean Corpuscular HGB Conc 32.1 g/dL (31.5-36.5); Mean Corpuscular Volume 99 fL (80-100); NEUTROPHILS ABSOLUTE AUTO 7.24 K/mm3 (1.96-9.15); NEUTROPHILS PERCENT AUTO 92 % (41-73); NRBC ABSOLUTE 0.02 K/mm3 (0.00-0.02); NRBC Auto 0.3 /100 WBC (0.0-0.2); Platelet Count 55 K/mm3 (150-400); RDW Coefficient Variation 11.9 % (11.7-14.2); RDW Standard Deviation 43.3 fL (35.1-46.3)
--- NOTE | 2021-08-26 17:51 | NUR ---
SUMMMERY OF CARE RECEIVED PT SLEEPING ON BIPAP, ARROUND 9AM PT ATTEMPTED TO GET OUT OF BED, PRN ATIVAN GIVEN PRECEDEX INCREASED TO 1, APPROVAL RECIEVED FROM . RESTRAINTS ON. PT AGITATED. BIPAP SETTING DECREASED TO 10/5- PT MAINTAINS O2 SATS 90-93%. DAUGHTER JOHN UPDATED.
--- NOTE | 2021-08-26 19:00 | NUR ---
PATIENT REPORT RECEIVED FROM JONATHAN AAOX1, AGITED BIPAP 08/30/11/24 SB NOTED IN THE MONITOR SKIN (SKIN TEAR IN THE FACE) PPN 96 ML/HR SCD PLACED URINE CATHETER CLEAN, DRY WILL RTO CONTINUE TO MONITOR
[2021-08-26 19:54] LABS: Mean Platelet Volume 14.2 fL (9.1-12.4)
[2021-08-26 20:02] LABS: Base Excess Venous 20.3 mmol/L; Bicarbonate Venous 40.7 mmol/L (24.0-30.0); PCO2 Venous 71.3 mmHg (38-42); PO2 Venous 34.2 mmHg (38-42); pH Blood Venous 7.41 (7.34-7.37)
[2021-08-27 05:14] LABS: Albumin, Blood 2.5 g/dL (3.4-5.0); Anion Gap 2 mmol/L (6-16); Blood Urea Nitrogen 44 mg/dL (8-24); Bun/Creatinine Ratio 62.6 (12.0-20.0); CO2, Blood 40 mmol/L (21-32); Calcium, Blood 8.2 mg/dL (8.5-10.1); Chloride, Blood 97 mmol/L (98-108); Glomerular Filtration Rate >60 (60-); Glucose, Blood 193 mg/dL (70-99); Magnesium, Blood 2.5 mg/dL (1.6-2.4); Phosphorus, Blood 4.2 mg/dL (2.5-4.9); Potassium, Blood 4.9 mmol/L (3.5-5.5); Sodium, Blood 139 mmol/L (136-145)
--- NOTE | 2021-08-27 07:49 | NUR ---
ASSUMING CARE OF PT. LOC: RESPONDS TO VERBAL STIMULI, NODS TO QUESTIONS. PT CONFUSED. AGITATED RESP: ON BIPAP 10/5 FIO2 DECREASED TO 30% GTT: ON PRECEDEX; ON ATTEMPT TO DECREASE PT ATTEMPTS TO GET OUT OF BED. RATE BACK TO 1.4 : DUNBAR TO GRAVITY GI: NPO SKIN: REDNESS NOTED TO FACE WHERE BIPA MASK IS IN CONTACT WITH SKIN.
--- NOTE | 2021-08-27 11:53 | NUR ---
UPDATE- SKIN BREAKDOWN NOTED UNDER BIPAP FULL FACE MASK. SEE SKIN ASSESSMENT. MASK CHANGED
[2021-08-27 15:10] LABS: HEPARIN INDUCED PLATELET AB 0.134 OD (0.000-0.400)
--- NOTE | 2021-08-27 17:57 | NUR ---
Spoke to pt's daughter Elzbieta today, able to give her an update on her dad's condition. As requested by Dr. Cabral, set up a care conference with family, palliative care, Dr. Carroll, and Dr. Burch to discuss goals of care.
--- NOTE | 2021-08-27 18:27 | NUR ---
SHIFT SUMMERY PECEDEX DECREASED TO 0.7. PRN ATIVAN GIVEN X3. ORAL CARE DONE. ADAPTER PLACE ON BIPAP. NO OTHER CHANGES TO REPORT. PT RESTING IN BED AT THIS TIME.
--- NOTE | 2021-08-27 19:40 | NUR ---
PATIENT REPORT RECEIVED FROM [facility] PATIENT APPEAR ON CALM, AAOX2, SELF AND PLACE, FOLLOWS COMMAD PATIEN ON BIPAP, BILATERAL CRACKELS IN THE LUNGS SB NOTED IN THE MONITOR SKIN TEAR IN THE LEFT HAND, WOUND CARE PERFORMED WILL TO CONTINUED TO MONITOR
[2021-08-28 04:40] LABS: Base Excess Venous 18.5 mmol/L; PCO2 Venous 72.3 mmHg (38-42); PO2 Venous 41.4 mmHg (38-42); pH Blood Venous 7.39 (7.34-7.37)
[2021-08-28 14:09] LABS: Bicarbonate Venous 38.1 mmol/L (24.0-30.0); PCO2 Venous 86.1 mmHg (38-42); PO2 Venous 39.7 mmHg (38-42); pH Blood Venous 7.32 (7.34-7.37)
--- NOTE | 2021-08-28 16:25 | NUR ---
Met with pt's daughters and Dr. Carroll for a care conference to discuss placement options. Initially, the daughters decided they wanted him to go to rehab, with the hope of him returning to his previous level of health. However, after seening the patient, it became extremely obvious that this wouldn't be the case, and they decided on home with hopice, as pt is continuing to need intermittent bipap, is extremely weak, and likely bedbound due to increased breathing needs. After the visit, they have decided on hospice care on discharge. Pt is appropriate for hospice care. Plan: Will need same day hospice admit with hospital discharge.
--- NOTE | 2021-08-28 19:15 | NUR ---
PT'S DAUGHTER JHON UPDATED VIA PHONE AT 1042, RESTRAINTS REMOVED AT 0730, DR. RAMON WAS UPDATED BY PHONE AND LATER AT BEDSIDE 2X, PRECEDEX WEANED TO 0.35 AND OXYGEN WEANED TO 3L NC AT 1311, PT PASSED BEDSIDE SWALLOW STUDY, RECEIVED ORAL CARE Q4H WITH Q2H TURNS, PT'S SKIN TEAR ON L WRIST (PHOTOS ALREADY IN CHART) DRESSED WITH XEROFORM AND TEGADERM, PT NT SUCTIONED 2X, VBG RESULTS INDICATED PT NEED FOR BIPAP SO PT BACK ON AT 1450; PT PUT ON NC FOR FAMILY VISIT WITH PALLIATIVE CARE, AFTER FAMILY VISITED WITH PT, PT BECAME HIGHLY AGITATED AND COMBATIVE, KICKING THIS RN IN THE STOMACH AND GRABBING TWO OTHER STAFF MEMBERS ON THE ARMS, PRECEDEX TITRATED BACK UP TO 1.4 AND RESTRAINTS REORDERED AND REAPPLIED, BIPAP REAPPLIED AT 10/5 AND 30%, NO OTHER CHANGES AT THIS TIME
--- NOTE | 2021-08-28 19:42 | NUR ---
Assumed care for patient. Restless in bed with lower extremities over the side rails. Repositioned. Patient on BIPAP. denied pain. Received patient on Precedex at 1.4mcg/kg/hr and PPN at 96ml/hr.Will continue to monitor.
[2021-08-29 05:09] LABS: Triglycerides 181 mg/dL (30-160)
--- NOTE | 2021-08-29 06:15 | NUR ---
Patient remained agitated during the shift.. He kept taking off the BIPAP. High flow 14L was used with success.His blood pressure was high and Apresoline 10 mg was administered. On auscultation his lungs had crackles all over. He was deep suctioned twice during the shift. His hospice order was acknowledged and some of the prescribed meds, such as Atropin 3 drops, Scopolamine patch, Roxanol and Ativan were also administered. MD increased the Fentanyl ivp from 25mg to 50mg.
--- NOTE | 2021-08-29 08:39 | NUR ---
ASSUMED CARE. PATIENT SLEEPING/RESTING COMFORTABLE. VSS. TOLERATING HIGH FLOW O2 WITH SATS 95%. WILL LET REST FOR NOW AND REACCESS WHEN PATIENT AWAKES. CONTINUE TO MONITOR AND TX PRN.
--- NOTE | 2021-08-29 10:28 | NUR ---
REACCESSED PATIENT AT 0940. PT REMAINS SLEEPY, OCCASIONAL MUMBLING NOTED. DOESN'T OPEN EYES TO VERBAL STIMULI. RIGHT POWER GLIDE COLIN D&I WITH PRECEDEX GTT INFUSING AT 1.4MCG, TITRATE TO OFF. LEFT UPPER ARM POWER GLIDE WITH PPN AT 96ML/HR; IV SITE INFILTRATED. LEFT ARM TO LEFT CHEST WALL SWOLLEN, WEEPING AND TENDER TO TOUCH/MOVE EXTREMITY. CHARGE NURSE KILO NOTIFIED. STOPPED PPN. DC'D IV SITE AND PLACE WARM BLANKET TO AREA AND REPOSITIONED PATIENT WITH ARM ELEVATED. MEDICATED WITH ROXANOL 20ML SUBLINGUAL. LUNGS COARSE, 02 WITH HIGH FLOW 11L/NC. ABD LARGE/ROUND WITH HYPO BT'S. DUNBAR PATENT WITH DARK FEI COLOR. BILATERAL ARMS ECCOYMOTIC. AND SOME ABRASIONS TO FACE; D&I. CONTINUE TO MONITOR AND TX PER ORDERS.
--- NOTE | 2021-08-29 11:59 | NUR ---
DR MALIN HERE TO SEE PATIENT. NEW ORDERS TO CHANGE COMFORT CARE/HOSPICE AND WILL CHANGE STATUS MEDICAL NO TELE. WILL CALL DAUGHTER MARÍA AND UPDATE WITH STATUS.CONTINUE TO MONITOR AND MEDICATE PRN.
--- NOTE | 2021-08-29 12:51 | NUR ---
CALLED MARÍA BACK AND UPDATED WITH NEW PLANS AND STATUS CHANGE TO MEDICAL/COMFORT CARE. ANSWERED ALL QUESTIONS TO DAUGHTERS. WILL UPDATE THEM WHEN PATIENT GETS TRANSFER TO FLOOR. PATIENT AWAKE, EYES OPEN. MUMBLING TO SELF. WHEN ASKED IF HAVING ANY PAIN, STATES "NO". CONTINUE TO MONITOR AND TX FOR COMFORT PRN.
--- NOTE | 2021-08-29 13:39 | NUR ---
REMAINS AWAKE, EYES OPEN. WHEN ASKED IF HAVING ANY PAIN, STATES "NO". INFORMED PATIENT THAT DAUGHTERS ARE UPDATED WITH STATUS AND PLANS TO GET HIM HOME ON HOSPICE, STATES "YEP".
--- NOTE | 2021-08-29 14:31 | NUR ---
1400 MUMBLING NOTED. WHEN ASKED IF HAVING PAIN OR NEED SOMETHING TO RELAX, PATIENT STATES "YES". MEDICATED WITH ROXANOL AND ATIVAN. PATIENT SLEEPING/RESTING COMFORTABLE. CONTINUE TO MONITOR AND TX PRN.
--- NOTE | 2021-08-29 16:01 | NUR ---
REPOSITIONED IN BED. INCREASE PAIN WITH MOVEMENT. MEDICATED PER ORDERS.
--- NOTE | 2021-08-29 16:27 | NUR ---
CALLED TO DAUGHTER MARÍA AND UPDATED THAT FATHER IS TRANSFERRING TO MEDICAL FLOOR, BED 359 AND HE'S BEING MEDICATED FOR PAIN. PATIENT RESTING COMFORTABLE AT THIS TIME.
--- NOTE | 2021-08-29 16:53 | NUR ---
REPORT GIVEN TO ALBARO SETHI. WILL TRANSFER TO ROOM 359 VIA BED.
--- NOTE | 2021-08-29 18:50 | NUR ---
Pt's daughter Alicia called today, and continued to cry about pt's current situation/condition. She asks several times if she is "giving up on him too soon", I gently explained she is merely following his wishes. I reminded her he just spent the last 9 days in restraints, wearing a bipap mask. He doesn't want it on any longer, and made that very clear last evening. She agrees, but continues to cry, and tells me how just 2 years ago, the pt was still driving. She is having an extremely hard time with acceptance of pt's illness. Hopefull that the hospice team will be able to better address both daughters' grief. I continue to remind and encourage them that this choice is their dad's choice, not theirs. They v/u. Pt to be moved to Medical Floor today. Will remain available.
--- NOTE | 2021-08-29 19:30 | NUR ---
SHIFT SUMMARY: PT ARRIVED TO FLOOR AT 1725. PT WAS AWAKE BUT NON RESPONSIVE TO QUESTIONS. PT MOANING AND FLINCHES WHEN LEFT ARM IS TOUCHED. LEFT ARM VERY SWOLLEN WITH YELLOW LARGE BLISTERS TO UPPER INNER ARM AREA. PT ARM ELEVATED FOR COMFORT. PT POSITIONED FOR COMFORT IN BED. FEET FLOATED AND HEEL PROTECTORS ON. PT SON MILES IN ROOM WITH PT AT TIME OF TX. PT MEDICATED PER JAN FOR COMFORT. PT ON 5 LPM VIA NC FOR COMFORT. BED IN LOW POSITION AND BED ALARM ON.
--- NOTE | 2021-08-30 05:53 | NUR ---
Pt on CC, family at bedside. Pt repositioned as needed and as tolerated. Pain meds given at beginning of shift. 0530: RR 10-12. Plan: comfort measures, pt to discharge to home with hospice today
--- NOTE | 2021-08-30 07:26 | NUR ---
ASSUMED CARE OF PT THIS MORNING, RESTING WITH EYES SHUT, PT HAS MILD CARLOS STOKE BREATHING WITH RR 10-12 PER MINUTE. PT HAS NO S/S OF PAIN AT THIS TIME. PT UNRESPONSIVE TO VERBAL STIMULI.
--- NOTE | 2021-08-30 08:42 | NUR ---
0827: UPON ENTERING PT ROOM, RR HAD CEASED, NO PULSE PALPABLE, NO HEART SOUNDS X ONE MINUTE. DR. MALIN NOTIFIED OF TOD. POST MORTEM CARE COMPLETED. CALLED DAUGHTER JHON AND LEFT MESSAGE. CALLED SON MILES AND NO ANSWER, UNABLE TO LEAVE MESSAGE. CALLED MARÍA AND SHE RETURNED CALL. INFORMED HER OF HER FATHER'S PASSING AND GAVE CONDOLENCES. FAMILY TO COME IN TO SEE THERE FATHER. COMFORT CARE CART IN PLACE.
== END 2021-08-30 08:27 | DRG 189 ==
LOC: ER 17:12 → PCU 17:13 → MEDS 17:13 → ICUE 20:16 → MEDS 20:16 → PCU 20:57 → MEDS 08-21 11:51 → ICUE 08-23 09:51 → MEDS 08-29 17:25
PROVIDERS: Family Medicine; Internal Medicine; Student in an Organized Health Care Education/Training Program; ADMIT Internal Medicine
PROC: 5A09357 Assistance with Respiratory Ventilation, Less than 24 Consecutive Hours, Continuous Positive Airway Pressure (ICD-10-PCS; principal; 2021-08-19)
PROC: 5A0935A Assistance with Respiratory Ventilation, Less than 24 Consecutive Hours, High Flow/Velocity Cannula (ICD-10-PCS; 2021-08-20)
DX: J96.01 Acute respiratory failure with hypoxia (principal); G92.9 Unspecified toxic encephalopathy; J44.1 Chronic obstructive pulmonary disease with (acute) exacerbation; Z66 Do not resuscitate; Z51.5 Encounter for palliative care; Z20.822 Contact with and (suspected) exposure to COVID-19; J96.02 Acute respiratory failure with hypercapnia; E86.0 Dehydration; D69.6 Thrombocytopenia, unspecified; R33.9 Retention of urine, unspecified; I10 Essential (primary) hypertension; E87.5 Hyperkalemia; F17.210 Nicotine dependence, cigarettes, uncomplicated; Z79.52 Long term (current) use of systemic steroids; Z79.899 Other long term (current) drug therapy; Z86.73 Personal history of transient ischemic attack (TIA), and cerebral infarction without residual deficits; Z90.49 Acquired absence of other specified parts of digestive tract
CPT/HCPCS: 0202U; 36415; 36600; 51703; 70450; 71045; 80048; 80053; 80069; 80076; 81001; 82803; 82947; 83605; 83690; 83735; 83880; 84132; 84145; 84478; 84484; 85025; 86022; 87086; 93005; 93010; 94640; 94644; 94660; 94664; 94667; 94760; 94762; 96365; 96375; 97162; 97530; 99285-25; A9270; C1751; J0360; J0610; J1630; J1650; J1815; J1940; J2060; J2920; J2930; J3010; J7030; J7042; J7050; J7060; J7131; U0004